=== PATIENT | female | born 1965 | race Caucasian/White ===

== ENCOUNTER 2017-01-19 03:31 | Inpatient (IN) ==
[2017-01-19 04:12] LABS: MANUAL DIFF NEEDED? NO
[2017-01-19 04:16] LABS: BASO% 0.2 % (0.0-0.8); HEMATOCRIT 39.5 % (37.0-47.0); HEMOGLOBIN 14.1 g/dL (12.0-16.0); IMM GRAN# 0.02 X1000 (0.0-0.04); IMM GRAN% 0.2 % (0.0-0.5); LYMPH# 1.19 X1000 (1.2-3.4); LYMPH% 9.1 % (20.5-51.1); MCHC 35.7 g/dL (33-37); MONO# 1.08 X1000 (0.11-0.59); MONO% 8.2 % (1.7-9.3); NEUT% 82.3 % (42.2-75.2); PLT 328 X1000 (130-400)
[2017-01-19 04:19] LABS: URINE CULTURE PL NEEDED? NO; URINE SOURCE CLEAN CATCH
[2017-01-19 04:21] LABS: BILIRUBIN URINE NEGATIVE (NEGATIVE); BLOOD URINE NEGATIVE (NEGATIVE); CLARITY CLEAR (CLEAR); COLOR YELLOW
[2017-01-19 04:22] LABS: PH URINE 6.5; PROTEIN URINE NEGATIVE (NEGATIVE); UROBILINOGEN URINE NORMAL
[2017-01-19] MEDS ORDERED: COLACE PO ONE (04:26)
--- NOTE | 2017-01-19 04:26 | PROVIDER DOCUMENTATION ---
HPI-General Adult - General Chief Complaint: Abdominal Pain Stated Complaint: ABD PAIN Time Seen by Provider: 01/19/17 03:44 Source: patient Unable to obtain history due to:: urgency Allergies/Adverse Reactions: Patient Allergies Allergy/AdvReac Type Severity Reaction Status Date / Time No Known Allergies Allergy Verified 09/04/13 00:03 Home Medications: Home Medication List Medication Instructions Recorded Confirmed Last Taken Type Alprazolam [Xanax] 1 tab PO BID 01/19/17 01/19/17 Unknown History Docusate Sodium [Colace] 200 mg PO QHS #30 capsule 01/19/17 Unknown Rx Lisinopril 1 tab PO DAILY 01/19/17 01/19/17 Unknown History - History of Present Illness -Gen Adult Nature of Presenting Problems: Patient thinks shes constipated. Denies any other complaints. Started 2 hours ago. Location of Pain/Injury: reports: abdomen Pain Radiation: reports: back Quality of Pain: reports: cramping Severity: reports: mild Onset/Duration: reports: 1-3 hours ago Timing: reports: still present Context/Activities at Onset: reports: none Modifying Factors: improves with: other medication Associated Symptoms: reports: denies symptoms Similar Symptoms Previously?: Yes Recently seen or treated by another doctor?: Yes - Diabetes Related Context Context: denies: low blood sugar - Sickle Cell Pain Related Context Sickle Cell Pain Location: reports: none Review of Systems - Adult - REVIEW OF SYSTEMS - ADULT Constitutional: reports: no symptoms reported Eyes: reports: no symptoms reported Ears, Nose, Mouth & Throat: reports: no symptoms reported Cardiovascular: reports: no symptoms reported Respiratory: reports: no symptoms reported Gastrointestinal: reports: constipation Genitourinary: reports: no symptoms reported Musculoskeletal: reports: no symptoms reported Integumentary: reports: no symptoms reported Neurological: reports: no symptoms reported Psychiatric: reports: no symptoms reported Endocrine: reports: no symptoms reported Hematologic/Lymphatic: reports: no symptoms reported Allergic/Immunologic: reports: no symptoms reported All Other Systems: Reviewed and Negative Past History - Adult - PAST MEDICAL HISTORY-ADULT Review of Records: reports: Old Records Reviewed, Nursing Assessment Review, Medications Reviewed, Social history reviewed & non-contributory. Physical Exam-General - PHYSICAL EXAM-ADULT Initial Vital Signs Reviewed: Yes - CONSTITUTIONAL General Appearance: appears well - EYES Eyes: PERRL/EOMI - HEAD, EARS, NOSE, MOUTH & THROAT HENMT: normocephalic/atraumatic - NECK Neck: non-tender - RESPIRATORY Respiratory: chest non-tender - CARDIOVASCULAR Cardiovascular: normal peripheral pulses - GASTROINTESTINAL (ABDOMEN) Abdominal Exam: normal bowel sounds - LYMPHATIC Lymphatic: no adenopathy - MUSCULOSKELETAL Back Exam: normal inspection Extremity: normal range of motion - SKIN Integumentary: normal color - NEUROLOGIC Neurologic: avionics technician II-XII nml as tested, grossly normal - PSYCHIATRIC Psych/Mental Status: normal mood/affect Progress - PLAN OF CARE/RESULTS Progress/Plan/Lab Results: Vital Signs - 8 hr 01/19/17 03:40 Temperature 97.9 F Pulse Rate 83 Respiratory Rate 20 Blood Pressure 123/83 O2 Sat by Pulse Oximetry 96 Laboratory Results - last 24 hr 01/19/17 01/19/17 01/19/17 03:50 03:50 04:00 WBC 13.13 H RBC 4.70 Hgb 14.1 Hct 39.5 MCV 84.0 MCH 30.0 MCHC 35.7 RDW Std Deviation 12.2 Plt Count 328 MPV 11.0 H Immature Gran % (Auto) 0.2 Neut % (Auto) 82.3 H Lymph % (Auto) 9.1 L [place] % (Auto) 8.2 Eos % (Auto) 0.0 Baso % (Auto) 0.2 Immature Gran # (Auto) 0.02 Neut # (Auto) 10.81 H Lymph # (Auto) 1.19 L [place] # (Auto) 1.08 H Eos # (Auto) 0.00 Baso # (Auto) 0.03 Urine Source Cancelled CLEAN CATCH Urine Color Cancelled Urine Turbidity Cancelled Urine pH Cancelled Ur Specific [place] Cancelled Urine Protein Cancelled Ur Glucose (Stick) Cancelled Ur Ketones (Stick) Cancelled Urine Blood Cancelled Urine Nitrite Cancelled Urine Bilirubin Cancelled Urobilinogen Dipstick Cancelled Urine Leukocytes Cancelled Urine WBC (Auto) Cancelled Urine RBC (Auto) Cancelled U Epithel Cells (Auto) Cancelled Urine Bacteria (Auto) Cancelled Orders Category Date Time Status Saline Loc DIRECTED Care 01/19/17 03:44 Active NPO Diet 01/19/17 03:44 Active KUB ABDOMEN [RAD] Stat Exams 01/19/17 03:45 Ordered AMYLASE [CHEM] Stat Lab 01/19/17 04:00 Received CBC WITH ELECTRONIC DIFF [HEME] Stat Lab 01/19/17 04:00 Completed COMPREHENSIVE METABOLIC PANEL [CHEM] Stat Lab 01/19/17 04:00 Received LIPASE [CHEM] Stat Lab 01/19/17 04:[address] W/POSS RFLX CULT [URINALYSIS] Stat Lab 01/19/17 03:50 Results Result Diagrams: 01/19/17 04:00 Departure - Departure Date of Disposition Decision: 01/19/17 Time of Disposition Decision: 04:25 DIAGNOSIS: Abdominal pain, Constipation Disposition: HOME 01 Certified Medical Emergency: Emergent Condition: Stable Prescriptions: Docusate Sodium [Colace] 200 mg PO QHS #30 capsule Referrals and Follow-Ups: None,PCP [Primary Care Provider] - - Critical Care Note This patient required my direct & personal management of CC.: No Attestation - Physician/ FRANCISCO Attestation The physician spent face to face time with patient:: Yes Advanced Practice Provider documentation review:: Supervising physician onsite and consulted in the evaluation and care of this patient. The physician did have a face to face encounter with the patient.
[2017-01-19] MEDS ORDERED: CITRATE OF MAGNESIA ONE (04:29)
[2017-01-19] MEDS ORDERED: CITRATE OF MAGNESIA PO ONE (04:31)
[2017-01-19 04:32] LABS: LEUKOCYTES URINE NEGATIVE (NEGATIVE); NITRITE URINE NEGATIVE (NEGATIVE)
[2017-01-19 04:46] LABS: ALBUMIN 4.7 g/dL (3.5-5.0); CALCIUM 9.8 mg/dL (8.8-10.2); POTASSIUM 3.9 mmol/L (3.5-5.1); TOTAL BILIRUBIN 0.3 mg/dL (0.20-1.00); TOTAL PROTEIN 8.7 g/dL (6.3-8.3)
[2017-01-19] MEDS ORDERED: NS 1,000 ML ONE (05:16)
[2017-01-19] MEDS ORDERED: HUMULIN R (PARKWAY) ONE (05:18)
[2017-01-19] MEDS ORDERED: NS 100 ML ONE ×2 (05:19→19:20)
[2017-01-19] MEDS ORDERED: NS 1,000 ML IV ONE (05:19)
[2017-01-19] MEDS ORDERED: DILAUDID IV ONE (05:26)
[2017-01-19] MEDS ORDERED: ZOFRAN IV ONE (05:26)
[2017-01-19] MEDS ORDERED: HUMULIN R (PARKWAY) 100 UNITS in NS 100 ML IV SCH (05:30)
[2017-01-19] MEDS ORDERED: DEMEROL IV ONE (05:55)
[2017-01-19] MEDS ORDERED: POTASSIUM CHLORIDE 40 MEQ/SWI 40 MEQ/100 ML IVPB IV PRN (07:38)
[2017-01-19] MEDS ORDERED: D50W SYRINGE IV PRN (07:38)
[2017-01-19] MEDS ORDERED: MAGNESIUM SULFATE 2 GM/S.W.I. 2 GM/50 ML IVPB IV PRN (07:38)
[2017-01-19 07:41] LABS: BE -11.1 mmoll (-3.0-3.0); BLOOD TYPE ARTERIAL; DRAW SITE R RADIAL; METHB 1.4 % (0.0-1.5); O2(CT) 20.6 mL/dL (15.0-23.0); PCO2(98.6) 24 mmHg (35-45); PO2(98.6) 114 mmHg (60-100); SAMPLE BLOOD; SAO2 98.6 % (95.0-100.0); THB 15.2 g/dL (11.5-17.4); pH(98.6) 7.33 (7.35-7.45)
[2017-01-19] MEDS ORDERED: ZOFRAN IV PRN (07:42)
[2017-01-19] MEDS ORDERED: SODIUM PHOSPHATE 30 MMOL in D5W 250 ML IV PRN (07:42)
[2017-01-19 07:46] LABS: ALLEN TEST YES; MODALITY ROOM AIR
[2017-01-19] MEDS: NS 1,000 ML IV SCH ×6 (08:07→20:39)
--- NOTE | 2017-01-19 09:13 | Diag Imaging Result Doc PS360 ---
EXAM: US ABDOMEN-COMPLETE INDICATION: pancreatitis COMPARISON: None. FINDINGS: There are prominent shadowing stones and layering echogenic sludge in the lumen of the gallbladder. There is no obvious gallbladder wall thickening. The common bile duct is normal in diameter. The sonographic Nicole's sign was reported to be positive by the household cook. The liver appears diffusely echogenic suggesting hepatic steatosis. No discrete hepatic mass is appreciated. Portal venous flow is hepatopedal. Much of the pancreas is obscured. The visualized portion is grossly unremarkable. No definite peripancreatic fluid collections can be identified by ultrasound. Portions of the aorta and IVC are obscured by gas. The visualized portions are unremarkable. The spleen is unremarkable. The kidneys are grossly unremarkable. IMPRESSION: 1.Prominent stones and echogenic sludge in the gallbladder lumen with a reported positive sonographic Nicole sign. No definite gallbladder wall thickening is appreciated by ultrasound. 2.Suggestion of hepatic steatosis. 3.The pancreas is largely obscured. No pericholecystic fluid collection can be identified sonographically. Electronically signed by Roderick Bonilla 01/19/2017 9:10 AM
[2017-01-19] MEDS: DILAUDID IV PRN ×5 (09:14→21:21)
[2017-01-19 09:57] LABS: AGAP 33; BUN 18 mg/dL (8-22); CALCIUM 9.2 mg/dL (8.8-10.2); CHLORIDE 87 mmol/L (98-107); COSMO 294; MAGNESIUM 2.3 mg/dL (1.5-2.7); POTASSIUM 3.6 mmol/L (3.5-5.1); SODIUM 130 mmol/L (136-145); TCO2 10 mmol/L (25-35)
[2017-01-19 10:48] LABS: HEMOGLOBIN A1C 6.1 % (4.8-6.0)
[2017-01-19] MEDS: PRINIVIL PO SCH (12:10)
[2017-01-19] MEDS: XANAX PO SCH ×2 (12:10→20:36)
--- NOTE | 2017-01-19 12:12 | Diag Imaging Result Doc PS360 ---
EXAM: KUB ABDOMEN INDICATION: constipation c flank pain x 4 days TECHNIQUE: 2 views COMPARISON: None. FINDINGS: There are unremarkable bowel gas and stool patterns. There is no obstructive bowel pattern. There is no evidence of large volume free abdominal gas. There is no evidence of organomegaly. IMPRESSION: No evidence of acute pathology by plain radiograph. Electronically signed by Roderick Bonilla 01/19/2017 12:10 PM
[2017-01-19 12:20] LABS: AGAP 28; BUN 16 mg/dL (8-22); CALCIUM 8.4 mg/dL (8.8-10.2); CHLORIDE 98 mmol/L (98-107); COSMO 299; MAGNESIUM 2.3 mg/dL (1.5-2.7); SODIUM 136 mmol/L (136-145); TCO2 10 mmol/L (25-35)
--- NOTE | 2017-01-19 12:22 | HISTORY AND PHYSICAL ---
PRIMARY CARE PHYSICIAN: None. CHIEF COMPLAINT: Abdominal pain that began 2 hours prior to arrival. HISTORY OF PRESENTING ILLNESS: This is a 51-year-old female who presents to [facility] ER with complaints of abdominal pain that began approximately 2 hours prior to arrival. States that she thought that she may be constipated. Workup in the ER showed a white blood cell count of 13.13, a sodium that was 119, chloride 78, glucose was 1060, amylase of 471, lipase 1959. Acetone level was moderate. States that she has no previous history of diabetes but does have diabetes in her family. So, she was admitted to the intensive care unit for DKA new onset, diabetes and acute pancreatitis. PAST MEDICAL HISTORY: None. PAST SURGICAL HISTORY: Bilateral tubal ligation. FAMILY HISTORY: Diabetes and heart disease. SOCIAL HISTORY: She currently lives with family. Was a former smoker but has been quit for 5 years. Denied any alcohol or illicit drug use. ALLERGIES: She has no known drug allergies. HOME MEDICATIONS: She takes Xanax 1 mg p.o. b.i.d. and lisinopril 20 mg p.o. daily. LABORATORY DATA: Showed a white blood cell count of 13.13, hemoglobin 14.1, hematocrit 39.5, platelets 328,000. ABG with a pH of 7.33, pCO2 24, PO2 114 with a bicarb of 16.2, and this was on room air. Sodium was 119, potassium 3.9, chloride 78, CO2 16, BUN of 18, creatinine 1, glucose was 1060. Magnesium of 2.3. Amylase of 471 with a lipase of 1959. Blood sugar this a.m. was 656. Urinalysis was negative except for 2+ ketones and 3+ glucose. Acetone level was moderate. Did an abdomen ultrasound this a.m. that showed prominent stones and echogenic sludge in the gallbladder lumen with a reported positive sonographic Nicole sign. No definite gallbladder wall thickening is appreciated by ultrasound. There is some suggestion of hepatic steatosis. The pancreas was largely obscured. No pericholecystic fluid collection could be identified sonographically. REVIEW OF SYSTEMS: She denied any fever, chills, blurred vision, dizziness, chest pain, coughing, shortness of breath. She is positive for generalized abdominal pain, constipation. Denied any diarrhea or burning or hurting with urination. PHYSICAL EXAMINATION: On arrival showed a temperature of 97.9 degrees, pulse 83, respirations 20, blood pressure 123/83, saturating 96% on room air. GENERAL: This is a 51-year-old female who is lying in the bed, and answers questions appropriately. HEENT: Normocephalic and atraumatic. Pupils are equal, round, reactive to light. Extraocular movements are intact. Oropharynx and nares are clear. NECK: Supple. LUNGS: Clear to auscultation bilaterally with equal lung expansion and chest wall movement. HEART: With regular rate and rhythm. No murmurs, rubs, or gallops. ABDOMEN: Soft, tender to palpation throughout entire abdomen. Bowel sounds are present x4 quadrants. EXTREMITIES: No clubbing, cyanosis, or edema. NEUROLOGICAL: The cranial nerves 2-12 are grossly intact. ASSESSMENT: 1. DKA new onset. 2. Acute pancreatitis. 3. Hyponatremia secondary to her DKA. 4. Cholelithiasis. PLAN: She was admitted to the intensive care unit and placed on insulin drip per our protocol. Normal saline at 150 mL an hour. She is on Dilaudid 1-2 mg IV q.3-4 hours p.r.n. We will check a hemoglobin A1c today. We will recheck a BMP, magnesium and phosphorus per the DKA protocol and we will discuss this case with Surgery after her acute pancreatitis is improved and her DKA has resolved. Dictated by LAURA Poe for Guillermo Delgadillo MD cc: LAURA Poe MD
[2017-01-19 16:16] LABS: CALCIUM 7.9 mg/dL (8.8-10.2); MAGNESIUM 2.4 mg/dL (1.5-2.7); POTASSIUM 4.3 mmol/L (3.5-5.1)
[2017-01-19] MEDS ORDERED: BLISTEX MEDICATED BERRY LIP BALM TOP PRN (17:59)
[2017-01-19] MEDS: POTASSIUM CHLORIDE 20 MEQ/SWI 20 MEQ/100 ML IVPB IV PRN (18:43)
[2017-01-19] MEDS: D5 1/2 NS 1,000 ML IV SCH (20:22)
[2017-01-19 20:32] LABS: CALCIUM 7.6 mg/dL (8.8-10.2); MAGNESIUM 2.4 mg/dL (1.5-2.7); POTASSIUM 4.2 mmol/L (3.5-5.1)
[2017-01-19] MEDS: HUMULIN R 100 UNIT in NS 99 ML IV SCH (22:04)
[2017-01-19 22:45] LABS: BE -12.4 mmoll (-3.0-3.0); BLOOD TYPE ARTERIAL; DRAW SITE R RADIAL; METHB 1.7 % (0.0-1.5); PCO2(98.6) 32 mmHg (35-45); PO2(98.6) 80 mmHg (60-100); SAMPLE BLOOD; SAO2 97.7 % (95.0-100.0); THB 15.1 g/dL (11.5-17.4); pH(98.6) 7.24 (7.35-7.45)
[2017-01-19 22:47] LABS: ALLEN TEST YES; MODALITY ROOM AIR
[2017-01-20 00:13] LABS: CALCIUM 7.2 mg/dL (8.8-10.2); MAGNESIUM 2.2 mg/dL (1.5-2.7); POTASSIUM 3.7 mmol/L (3.5-5.1)
[2017-01-20] MEDS: POTASSIUM CHLORIDE 20 MEQ/SWI 20 MEQ/100 ML IVPB IV PRN ×3 (00:17→22:35)
[2017-01-20] MEDS: DILAUDID IV PRN ×8 (00:21→22:45)
[2017-01-20 01:19] LABS: BE -11.8 mmoll (-3.0-3.0); BLOOD TYPE ARTERIAL; DRAW SITE R RADIAL; METHB 1.7 % (0.0-1.5); O2(CT) 21.3 mL/dL (15.0-23.0); PCO2(98.6) 31 mmHg (35-45); PO2(98.6) 80 mmHg (60-100); SAMPLE BLOOD; SAO2 97.1 % (95.0-100.0); THB 16.1 g/dL (11.5-17.4); pH(98.6) 7.26 (7.35-7.45)
[2017-01-20 01:21] LABS: ALLEN TEST YES; MODALITY ROOM AIR
[2017-01-20] MEDS: D5 1/2 NS 1,000 ML IV SCH ×2 (02:28→10:30)
[2017-01-20 04:35] LABS: MAGNESIUM 2.1 mg/dL (1.5-2.7); POTASSIUM 4.2 mmol/L (3.5-5.1)
[2017-01-20 04:38] LABS: CALCIUM 6.8 mg/dL (8.8-10.2)
[2017-01-20 05:30] LABS: BE -12.1 mmoll (-3.0-3.0); BLOOD TYPE ARTERIAL; DRAW SITE R RADIAL; METHB 1.7 % (0.0-1.5); PCO2(98.6) 30 mmHg (35-45); PO2(98.6) 72 mmHg (60-100); SAMPLE BLOOD; SAO2 97.1 % (95.0-100.0); pH(98.6) 7.26 (7.35-7.45)
[2017-01-20 05:32] LABS: ALLEN TEST YES; MODALITY ROOM AIR
[2017-01-20] MEDS ORDERED: NS 250 ML IV ONE (05:37)
[2017-01-20] MEDS ORDERED: CALCIUM GLUCONATE 1 GM in NS 50 ML IV ONE ×2 (05:38→22:43)
[2017-01-20] MEDS: NS 1,000 ML IV SCH ×3 (05:40→22:56)
[2017-01-20] MEDS ORDERED: SODIUM CHLORIDE 0.9% INJ SCH (05:45)
[2017-01-20] MEDS ORDERED: PROTONIX IV SCH (05:45)
[2017-01-20 08:38] LABS: POTASSIUM 4.1 mmol/L (3.5-5.1)
[2017-01-20 08:40] LABS: CALCIUM 6.8 mg/dL (8.8-10.2)
[2017-01-20] MEDS: XANAX PO SCH ×2 (09:09→20:59)
[2017-01-20] MEDS: PRINIVIL PO SCH (09:22)
[2017-01-20 11:10] LABS: MAGNESIUM 2.1 mg/dL (1.5-2.7); POTASSIUM 3.8 mmol/L (3.5-5.1)
[2017-01-20 11:11] LABS: CALCIUM 6.9 mg/dL (8.8-10.2)
[2017-01-20] MEDS ORDERED: FLEET ENEMA PR ONE (11:23)
[2017-01-20] MEDS ORDERED: RELISTOR SUBQ ONE (11:23)
[2017-01-20] MEDS ORDERED: CALCIUM GLUCONATE 2 GM in NS 100 ML IV ONE (11:24)
[2017-01-20] MEDS ORDERED: ATIVAN IV PRN (11:26)
[2017-01-20] MEDS ORDERED: ZOSYN 2.25 GM in NS 50 ML IV SCH (11:30)
[2017-01-20] MEDS: HUMULIN R 100 UNIT in NS 99 ML IV SCH (12:00)
[2017-01-20 14:21] LABS: BLOOD TYPE ARTERIAL; DRAW SITE L RADIAL; METHB 1.7 % (0.0-1.5); O2(CT) 18.8 mL/dL (15.0-23.0); PCO2(98.6) 29 mmHg (35-45); PO2(98.6) 65 mmHg (60-100); SAMPLE BLOOD; SAO2 96.3 % (95.0-100.0); THB 14.5 g/dL (11.5-17.4)
[2017-01-20 14:39] LABS: pH(98.6) 7.23 (7.35-7.45)
[2017-01-20 14:40] LABS: ALLEN TEST YES; MODALITY ROOM AIR
[2017-01-20 15:42] LABS: CALCIUM 7.2 mg/dL (8.8-10.2); MAGNESIUM 1.9 mg/dL (1.5-2.7); POTASSIUM 4.1 mmol/L (3.5-5.1)
--- NOTE | 2017-01-20 17:32 | Diag Imaging Result Doc PS360 ---
EXAM: KUB ABDOMEN INDICATION: distention TECHNIQUE: 2 views COMPARISON: 01/19/2017 FINDINGS: There has been interval development of mild gaseous distention of a few loops of small bowel as well as the transverse colon. There is no evidence of large volume free abdominal gas. The abdomen is grossly stable, otherwise. IMPRESSION: Interval development of mild nonspecific gaseous distention of bowel as described. This may represent a mild ileus. Follow-up is recommended. Electronically signed by Roedrick Bonilla 01/20/2017 5:29 PM
[2017-01-20] MEDS ORDERED: BLISTEX MEDICATED BERRY LIP BALM TOP PRN (17:33)
[2017-01-20] MEDS ORDERED: D50W SYRINGE IV PRN (17:34)
[2017-01-20] MEDS ORDERED: MAGNESIUM SULFATE 2 GM/S.W.I. 2 GM/50 ML IVPB IV PRN (17:35)
[2017-01-20] MEDS ORDERED: POTASSIUM CHLORIDE 40 MEQ/SWI 40 MEQ/100 ML IVPB IV PRN (17:35)
[2017-01-20] MEDS ORDERED: SODIUM PHOSPHATE 30 MMOL in D5W 250 ML IV PRN (17:36)
[2017-01-20] MEDS ORDERED: NS 1,000 ML IV ONE (17:47)
[2017-01-20] MEDS ORDERED: NS 1,000 ML ONE (17:56)
[2017-01-20] MEDS ORDERED: HUMULIN R 100 UNIT in NS 99 ML IV SCH (18:00)
[2017-01-20] MEDS ORDERED: D5 1/2 NS 1,000 ML IV SCH (18:00)
[2017-01-20] MEDS ORDERED: NS 1,000 ML IV SCH (18:00)
[2017-01-20 18:05] LABS: ALLEN TEST YES; BE -13.2 mmoll (-3.0-3.0); BLOOD TYPE ARTERIAL; DRAW SITE R RADIAL; METHB 1.3 % (0.0-1.5); O2(CT) 19.6 mL/dL (15.0-23.0); PCO2(98.6) 31 mmHg (35-45); PO2(98.6) 74 mmHg (60-100); SAMPLE BLOOD; SAO2 97.4 % (95.0-100.0); THB 14.8 g/dL (11.5-17.4); pH(98.6) 7.23 (7.35-7.45)
[2017-01-20 18:06] LABS: MODALITY CANNULA
[2017-01-20] MEDS: ZOSYN 2.25 GM in NS 50 ML IV SCH ×2 (18:30→23:06)
--- NOTE | 2017-01-20 19:07 | PROGRESS NOTE ---
DATE: 01/20/2017 Progress note/acceptant note This is a 51-year-old who presented with abdominal pain to [facility], which began a couple of hours before arrival, but she reports that she has had this pain now for 3 days. [place] [address]. Sodium was 119, chloride was 78, glucose was 1060, amylase 471, lipase 1959, acetone level was moderate. Had no previous history of diabetes and only significant history was bilateral tubal ligation. By her report, she does take Xanax for anxiety. I do not think she has seen her primary care recently. PAST SURGICAL HISTORY: Bilateral tubal ligation as mentioned above. FAMILY HISTORY: Diabetes and heart disease. SOCIAL HISTORY: Currently lives with the family. Former smoker, but quit for 5 years. Denies any alcohol or illicit drugs. ALLERGIES: No known drug allergies. MEDICATION: Only medication was Xanax 1 mg b.i.d. and lisinopril 20 mg a day. LAB DATA: Once again, white blood cell count 94438, hemoglobin was 14, hematocrit 39, platelet count 328,000. ABG shows pH is 7.33, pCO2 24, PO2 114, bicarb 16. She was on room air. Sodium was 119, potassium 3.9, chloride 78, CO2 16, BUN 18, creatinine 1.0, glucose was 1060, magnesium 2.3, amylase 471, lipase 1959. Blood sugar was 656. Urinalysis was negative except for 2+ ketones, 3+ glucose, acetone level was moderate. Abdominal ultrasound done showed prominent stones, echogenic sludge in the gallbladder lumen, reported positive Nicole sign. No definite gallbladder wall thickening. She reported she has had trouble with her gallbladder in the past. REVIEW OF SYSTEMS: General: No weight gain or loss. No fever or chills. HEENT: Unremarkable. Respiratory: No increased work of breathing or dyspnea. Cardiovascular: No chest pain or tachypalpitation. GI/: Unremarkable. Musculoskeletal: Unremarkable other than above. Musculoskeletal/neurologic: No significant complaints. PHYSICAL EXAM: Vital Signs: Temp 98.3 degrees, pulse 88, respirations 18, blood pressure 110/70. HEENT: Pupils are equal and round. Lungs are clear in all lung benz. Cardiovascular: Regular rhythm and rate without murmur or S3. Abdomen: Soft. Skin: Warm and dry. Urine output 1280. ASSESSMENT AND PLAN: 1. Pancreatitis. Suspect gallstone or related pancreatitis and may have some cholecystitis at this time as well. Continue to hold her NPO. Give her IV fluids. She looks as if she is dry, so we will change her to normal saline and give her liberal fluids. 2. She may have mild diabetic ketoacidosis, but I suspect it is more hyperosmolar, hyperglycemia, so will continue to give her IV insulin and to give her normal saline. 3. Cholelithiasis possible cholecystitis, aware. 4. New onset diabetes. cc: Colby Sharma MD
[2017-01-20] MEDS: PROTONIX IV SCH (19:15)
--- NOTE | 2017-01-20 19:19 | PROGRESS NOTE ---
DATE: 01/20/2017 SUBJECTIVE: The patient overall states she is feeling better. She is having less intense epigastric pain, but does note that her abdomen is swollen. She has been trying to have a bowel movement, but has not. She has been taking pain medications approximately every 3 hours, states it lasts about 2 to 2-1/2 hours, and then she starts getting anxious and starts hurting again. Denies any chest pain, palpitations. OBJECTIVE: Vital Signs: Reviewed. She is afebrile. Blood pressure is stable. Heart rate 90 to 110, respiratory rate 20-24. General: Patient is awake, alert. She is in no respiratory distress. Pleasant to talk with. She does not appear to be in as much pain as she was on yesterday's exam. HEENT: Normocephalic, atraumatic. FAUZIA. Neck: Supple. Cardiovascular: Regular rate and rhythm. Chest: Clear. Nonlabored. Abdomen: Soft, diffusely tender. Much more distended today than in yesterday's exam. Greatly decreased bowel sounds today from yesterday's exam. No apparent fluid wave. Extremities: Moves all extremities. No edema. ASSESSMENT: 1. Acute renal failure. Serum creatinine continues to climb. She was 0.9 on admit, currently 2.2. 2. Abdominal distention. Likely, she has a small bowel ileus secondary to her pancreatitis. We will continue to keep her NPO. We will attempt a Fleet's enema to see if this will help. 3. Pancreatitis. Amylase is slightly up. Lipase has trended down. Continue to keep NPO. Continue Zosyn. Further orders as needed. 4. Decreased urine output. Patient has had marked decrease in urinary output despite IV fluids. This certainly is worrisome with her acute pancreatitis. She is currently down to 15-20 mL an hour. We will check a KUB to see if she has any free air. Her altered renal ultrasound yesterday was negative. If her kidney continues to worsen, certainly may need to repeat this. PLAN: We will check KUB, try Fleet's enema. We will transfer her to [facility]. At this point, I expect that she is going to continue to worsen. We will consult Nephrology, Gastroenterology. She does have an abnormal gallbladder scan, but certainly does not need to have surgery at this point. We will continue to follow. cc: Guillermo Delgadillo MD
--- NOTE | 2017-01-20 19:31 | CONSULTATION ---
DATE OF CONSULTATION: 01/20/2017 REQUESTING PHYSICIAN: Hospitalist. REASON FOR CONSULTATION: Concerning possible biliary pancreatitis. HISTORY OF PRESENT ILLNESS: A 51-year-old female who presented to [facility] initially with complaints of abdominal pain approximately 2 hours prior to presentation. Workup in the emergency department showed a white blood cell count of 13. Sodium was noted at 110, chloride at 78, glucose over 1000. Amylase was 400, and lipase was almost 2000. Acetone levels were moderate. It was found that she was in DKA, and also had biliary pancreatitis. She has no previous history of diabetes or diabetes in her family. This was new-onset. She was transferred to [facility] for further evaluation, still reporting some abdominal pain. She has never had pain like this before. It was mostly concentrated in the epigastric area. I was asked to weigh an opinion on her acute pancreatitis. PAST MEDICAL HISTORY: None. PAST SURGICAL HISTORY: Bilateral tubal ligation. FAMILY HISTORY: Diabetes and heart disease. SOCIAL HISTORY: Currently lives with family. Former smoker. Denies alcohol or illicit drugs. ALLERGIES: No known allergies. HOME MEDICATIONS: Reviewed. She does take lisinopril. Current MAR reviewed. REVIEW OF SYSTEMS: A full 10-point review of systems obtained, negative, except as specified in HPI. PHYSICAL EXAMINATION: Vital Signs: Patient is currently afebrile. Her vital signs have been stable. General: In no acute distress. Appears uncomfortable. female. Looks stated age. HEENT: Normocephalic, atraumatic. Pupils equal, round, react to light. Mucous membranes moist. Oropharynx benign. Neck: Supple. Trachea midline. Cardiovascular: Regular rate and rhythm. Lungs: Grossly clear. Abdomen: Soft, distended, tender to palpation in the right upper quadrant and epigastric. No peritonitis, but she is tender in those regions. Extremities: Moves all extremities. Neurologic: Grossly intact. Skin: No signs of jaundice. Vascular: All extremities perfused. LABORATORY STUDIES: Reviewed. Of note, her amylase was 609, and her lipase was 1336. IMAGING STUDIES: Ultrasound reviewed. Patient does have prominent stones and sludge in her gallbladder, suggestion of moderate hepatic steatosis. ASSESSMENT AND PLAN: A 51-year-old female with new-onset diabetes, with diabetic ketoacidosis, with biliary pancreatitis. 1. New-onset diabetes with diabetic ketoacidosis. At this time, patient is being resuscitated on insulin drip. Her electrolytes seem to be improving. We need to have this all improved completely prior to any kind of surgical intervention. 2. Biliary pancreatitis. At this time, patient still has elevation in her lipase and had tenderness on exam that suggests she still has pancreatitis. At this time, I would like to have her pancreatitis cool off before surgical intervention, but she will likely need a cholecystectomy with cholangiogram. I discussed this with the patient. We will keep her in the ICU as long she needs to be resuscitated, and will continue to follow. Once she seems to clear from her DKA and her pancreatitis, will plan on surgical intervention. I appreciate the consult. cc: Venu Colbert MD
[2017-01-20] MEDS: ZOFRAN IV PRN (19:42)
--- NOTE | 2017-01-20 20:49 | CONSULTATION ---
DATE OF CONSULTATION: 01/20/2017 REFERRING PHYSICIAN: Guillermo Delgadillo MD REASON FOR CONSULTATION: Pancreatitis and gallstones. HISTORY OF PRESENT ILLNESS: Ms. Granados is a 51-year-old female who was admitted on 01/19/2017 to [facility] with symptoms of abdominal pain in the epigastric region , along with nausea and vomiting. At the time of admission, she was noted to have a high white count of 13,000, hyponatremia, sodium 119, glucose of 1060 and amylase of 471, lipase of 1959. Her acetone level was moderate. She was diagnosed with diabetic ketoacidosis, new onset diabetes , acute pancreatitis. She had imaging in the form of ultrasound done which showed evidence of gallstones. Her alkaline phos was also mildly elevated during this admission. She was transferred to the ICU in [facility] today. Her diabetic ketosis is getting better. She is on diabetic ketosis protocol. Her amylase and lipase were trending down with hydration. She still appears a little dry and she is on ice chips at the moment. She denied any vomiting or nausea today. She had one bowel movement today after enema. She does complain of abdominal pain and abdominal bloating which has stayed almost the same in the last 24 hours. She has had prior history of gallstones many years ago. PAST MEDICAL HISTORY: Gallstones. new onset diabetes mellitus. Admitted with diabetic ketoacidosis. PAST SURGICAL HISTORY: Bilateral tubal ligation. FAMILY HISTORY: Diabetes and heart disease. SOCIAL HISTORY: She lives with her family. She was a former smoker. She quit about 5 years ago. Denies alcohol, illicit drug abuse. ALLERGIES: No known drug allergies. MEDICATIONS: 1. Xanax 1 mg p.o. b.i.d. 2. Lisinopril 20 mg a day. MEDICATION IN THE HOSPITAL: 1. IV fluids at 150 hours with normal saline. 2. Xanax 1 mg p.o. b.i.d. 3. Dextrose 5% 0.45, normal saline at 125 ml/hour. 4. Blistex medicated lip balm. 5. Dilaudid 1-2 mg IV q. 3-4 hours as needed. 6. Humulin R drip. 7. Ativan 0.5 mg IV every 4 hours as needed. 8. Magnesium sulfate 2 g IV as needed. 9. Normal saline, I am giving her 1 bolus now as she appears dry. 10. Zofran 4 mg IV q.6 hours. 11. Protonix 40 mg IV q.12 hours. 12. Zosyn 2.25 g IV q.6 hours. 13. Sodium phosphate IV p.r.n. 14. She is currently nothing per oral. SYSTEM REVIEW: Denies any fevers, rigors, chills, chest pain, shortness of breath. Denies any genitourinary complaints. Denies any vomiting blood and passing blood in the stools. PHYSICAL EXAMINATION: Vital Signs: Temperature 98.3, pulse rate of 88, respiratory rate 18, blood pressure 110/70, saturating 99% 2 L nasal cannula. Body weight of 152 pounds, BMI 23.1 kg/m2. General: Moderately nourished, moderately built, lying in bed, in no acute. HEENT: No pallor. No icterus. Pupils equal, react to light. Neck: Supple. Chest: Decreased. Cardiac: Regular rate and rhythm. Abdomen: Distended, protuberant. Bowel sounds are hypoactive. No guarding. Discomfort in the periumbilical region and epigastric region. Liver and spleen cannot be felt. Extremities: No cyanosis, clubbing, edema. Neurologic: She is alert, awake, oriented x33. LABORATORY AND IMAGING: Her hemoglobin and hematocrit is 14.1 and 39.5 from yesterday. White count 13.1, platelet count of 328,000 from yesterday. Her ABG 7.23, pCO2 31, PO2 74, her lactate of 1.3, this is on 28% FiO2. Sodium 130, potassium 4.1, chloride 109, bicarb 23 , anion gap of 15, BUN of 20 creatinine of 2.4, glucose of 352, calcium 7.2, phosphorus 1.9. Magnesium 1.9, hb1c 6.1. Amylase of 471 which has gone up to 609, lipase is 1959, gone down to 1336. Urinalysis showing 2+ ketones, urine glucose is positive, acetone level is positive. She had ultrasound of the abdomen done yesterday which showed: 1) Prominent stones and echogenic sludge in the gallbladder lumen with reported positive sonographic Nicole's sign. No gallbladder wall thickening reported on ultrasound. 2) Suggestion of hepatic steatosis. 3) The pancreas is largely obscured. No pericholecystic fluid collection noted. IMPRESSION AND PLAN: 1. Acute pancreatitis, likely biliary pancreatitis. 2. Gallbladder sludge and gallstones. 3. New onset of diabetes with a blood glucose of more than 1000 on admission positive ketones and being treated for diabetic ketoacidosis. 4. Renal insufficiency, which is getting worse. RECOMMENDATIONS: 1. We will give 1000 mL bolus of fluids now and then start the NS at 250 mL/ hour and we will watch for signs of volume overload. 2. We will keep her on Protonix IV q.12 hours. She will continue IV pain control, IV antiemetics, IV fluids. 3. We will keep her NPO for now. Once she starts passing more gas and her appetite returns, we will reassess her for starting her on diet. We will call Dr. Venu Colbert for possible cholecystectomy during this admission. 4. We will check for triglyceride level, IgG 4 level and MRCP to evaluate for any other etiologies of her pancreatitis. 5. The above plan of care was discussed with the patient, RN, Dr. Colbert and Dr. Sharma. cc: MD Guillermo Saul MD Matthew L. Figh, MD MTDD
[2017-01-20 22:09] LABS: ALLEN TEST YES; BE -14.2 mmoll (-3.0-3.0); BLOOD TYPE ARTERIAL; DRAW SITE R RADIAL; METHB 1.3 % (0.0-1.5); PCO2(98.6) 26 mmHg (35-45); PO2(98.6) 72 mmHg (60-100); SAMPLE BLOOD; SAO2 97.4 % (95.0-100.0); THB 12.8 g/dL (11.5-17.4); pH(98.6) 7.25 (7.35-7.45)
[2017-01-20 22:10] LABS: MODALITY ROOM AIR
[2017-01-20 22:26] LABS: CALCIUM 6.7 mg/dL (8.8-10.2); POTASSIUM 4.6 mmol/L (3.5-5.1)
[2017-01-21] MEDS: D5 1/2 NS 1,000 ML IV SCH ×2 (00:24→04:51)
[2017-01-21] MEDS: DILAUDID IV PRN ×7 (02:01→22:27)
[2017-01-21] MEDS: ZOFRAN IV PRN (02:02)
[2017-01-21 04:43] LABS: MANUAL DIFF NEEDED? NO
[2017-01-21 04:48] LABS: BASO% 0.1 % (0.0-0.8); EOS# 0.01 X1000 (0.0-0.7); EOS% 0.1 % (0.0-10.0); HEMATOCRIT 34.4 % (37.0-47.0); HEMOGLOBIN 12.1 g/dL (12.0-16.0); IMM GRAN# 0.02 X1000 (0.0-0.04); IMM GRAN% 0.3 % (0.0-0.5); LYMPH# 0.98 X1000 (1.2-3.4); LYMPH% 12.6 % (20.5-51.1); MCHC 35.2 g/dL (33-37); MCV 85.1 FL (81-99); MONO# 0.51 X1000 (0.11-0.59); MONO% 6.6 % (1.7-9.3); NEUT% 80.3 % (42.2-75.2); PLT 262 X1000 (130-400); RBC 4.04 XMIL (4.2-5.4)
[2017-01-21 04:48] LABS: ALLEN TEST YES; BE -15.4 mmoll (-3.0-3.0); BLOOD TYPE ARTERIAL; DRAW SITE R RADIAL; METHB 1.4 % (0.0-1.5); MODALITY ROOM AIR; O2(CT) 16.6 mL/dL (15.0-23.0); PCO2(98.6) 25 mmHg (35-45); PO2(98.6) 79 mmHg (60-100); SAMPLE BLOOD; SAO2 97.9 % (95.0-100.0); THB 12.4 g/dL (11.5-17.4); pH(98.6) 7.23 (7.35-7.45)
[2017-01-21] MEDS: NS 1,000 ML IV SCH ×2 (04:52→05:47)
[2017-01-21 05:00] LABS: INR 0.99; PROTIME 10.4 Seconds (9.2-11.7)
[2017-01-21] MEDS: PROTONIX IV SCH ×2 (05:00→18:07)
[2017-01-21] MEDS: SODIUM CHLORIDE 0.9% INJ SCH ×2 (05:00→18:07)
[2017-01-21 05:11] LABS: MAGNESIUM 1.7 mg/dL (1.5-2.7)
[2017-01-21] MEDS: ZOSYN 2.25 GM in NS 50 ML IV SCH ×4 (05:11→23:06)
[2017-01-21 05:19] LABS: AGAP 17; ALBUMIN 2.6 g/dL (3.5-5.0); ALKALINE PHOSPHATASE 60 U/L (32-104); AMYLASE 355 U/L (20-200); BUN 31 mg/dL (8-22); CHLORIDE 105 mmol/L (98-107); COSMO 286; GOT 19 U/L (10-30); GPT 11 U/L (10-36); HDL 15 mg/dL (45-65); POTASSIUM 4.2 mmol/L (3.5-5.1); SODIUM 133 mmol/L (136-145); TCO2 11 mmol/L (25-35); TOTAL BILIRUBIN 0.31 mg/dL (0.20-1.00); TOTAL PROTEIN 5.6 g/dL (6.3-8.3); TRIGLYCERIDES 542 mg/dL (35-135)
[2017-01-21 05:27] LABS: LIPASE 590 U/L (13-60)
[2017-01-21] MEDS: POTASSIUM CHLORIDE 20 MEQ/SWI 20 MEQ/100 ML IVPB IV PRN ×4 (05:45→23:06)
[2017-01-21 06:20] LABS: CALCIUM 6.6 mg/dL (8.8-10.2)
--- NOTE | 2017-01-21 06:24 | PROGRESS NOTE ---
DATE: 01/19/2017 SUBJECTIVE: The patient notes she is having severe abdominal pain. Positive nausea. Denies any vomiting. She states it all started in the past few hours. Notes that over the past several days she has had increased thirst and increased urination. Denies any previous history of diabetes. PHYSICAL EXAMINATION: She is afebrile. Temperature 97 degrees, pulse 83, respiratory 20, BP 123/80, sat 96% on room air. General: Patient is awake, alert, currently in moderate distress secondary to pain. Abdomen is soft. Tender to palpation in the mid epigastric region. LABORATORY DATA: WBC 13. Sodium 119. Creatinine 1.0. Carbon dioxide 16. Glucose 1060, currently at 500. Lipase 1959. ASSESSMENT: 1. Acute pancreatitis. 2. Acute diabetes with hyperosmolar without coma. 3. Hyponatremia; corrects actually to 128. 4. Leukocytosis. PLAN: We will keep n.p.o. We will keep her blood sugars between 400s and 500s until around 2:00 p.m. At that point, we will begin slowly tightening down her blood sugar control. Certainly unsure how long her blood sugars have been this markedly elevated. The patient, however, is currently awake, alert, and oriented. We will use Dilaudid for pain. Keep n.p.o. Further orders as needed. cc: Guillermo Delgadillo MD
[2017-01-21] MEDS ORDERED: CALCIUM GLUCONATE 2 GM in NS 100 ML IV ONE ×2 (06:26→07:24)
--- NOTE | 2017-01-21 07:18 | PROGRESS NOTE ---
DATE: 01/21/2017 SUBJECTIVE: The patient doing okay. She is still reporting some abdominal pain. OBJECTIVE: Vital Signs: The patient is currently afebrile. Her vital signs have been stable. General: No acute distress. Resting comfortably in bed. HEENT: Normocephalic, atraumatic. Pupils equal, round, reactive to light. Mucous membranes moist. Oropharynx benign. Neck: Supple. Trachea midline. Cardiovascular: Regular rate and rhythm. Lungs: Grossly clear. Abdomen: Soft. Mildly distended. Tender to palpation in the epigastric. Extremities: Moves all extremities. Neurologic: Grossly intact. Skin: No signs of jaundice. Vascular: All extremities perfused. LABORATORY DATA: Reviewed. The patient is still acidotic on ABG with a base deficit of 15. Amylase and lipase are still elevated. Bilirubin is not elevated. Alkaline phosphatase is not elevated. AST and ALT are not elevated. ASSESSMENT AND PLAN: A 51-year-old female with diabetic ketoacidosis and biliary pancreatitis. 1. Diabetic ketoacidosis. At this time, kidney resuscitation is being managed by the hospitalist service. 2. Biliary pancreatitis. At this time, she still has elevated lipase and amylase. She is slubber tender that suggests that she still has some degree of pancreatitis. We will continue to hold off on surgery for right now. We will continue to monitor her closely. She is still acidotic and still needs some resuscitation. cc: Venu Colbert MD
[2017-01-21] MEDS ORDERED: NS 1,000 ML IV SCH (07:34)
[2017-01-21] MEDS ORDERED: SODIUM BICARBONATE IV SCH (07:59)
[2017-01-21] MEDS ORDERED: NS IV SCH (07:59)
[2017-01-21] MEDS ORDERED: NS 250 ML ONE (08:01)
[2017-01-21] MEDS: XANAX PO SCH ×2 (08:20→21:23)
[2017-01-21 08:29] LABS: MAGNESIUM 2.5 mg/dL (1.5-2.7)
[2017-01-21 08:38] LABS: POTASSIUM 4.2 mmol/L (3.5-5.1)
[2017-01-21 08:39] LABS: CALCIUM 6.9 mg/dL (8.8-10.2)
[2017-01-21 09:15] LABS: ALLEN TEST YES; BE -15.4 mmoll (-3.0-3.0); BLOOD TYPE ARTERIAL; DRAW SITE R RADIAL; METHB 1.3 % (0.0-1.5); O2(CT) 15.9 mL/dL (15.0-23.0); PCO2(98.6) 29 mmHg (35-45); PO2(98.6) 61 mmHg (60-100); SAMPLE BLOOD; SAO2 95.1 % (95.0-100.0); THB 12.3 g/dL (11.5-17.4)
[2017-01-21 09:17] LABS: MODALITY ROOM AIR
[2017-01-21] MEDS ORDERED: SODIUM PHOSPHATE 30 MMOL in NS 250 ML IV ONE (09:42)
[2017-01-21 10:24] LABS: UR CREAT RANDOM 63.1 mg/dL (11-20); UR PROT RANDOM 50.6 mg/dL
[2017-01-21] MEDS: SODIUM ACETATE IV SCH ×2 (10:31→21:23)
[2017-01-21] MEDS: NS IV SCH ×2 (10:31→21:23)
[2017-01-21] MEDS ORDERED: NEUTRA-PHOS PO ONE (11:20)
[2017-01-21 11:23] LABS: ALLEN TEST YES; BE -14.7 mmoll (-3.0-3.0); BLOOD TYPE ARTERIAL; DRAW SITE L RADIAL; METHB 1.3 % (0.0-1.5); MODALITY ROOM AIR; O2(CT) 16.4 mL/dL (15.0-23.0); PCO2(98.6) 26 mmHg (35-45); PO2(98.6) 68 mmHg (60-100); SAMPLE BLOOD; SAO2 97.2 % (95.0-100.0); THB 12.4 g/dL (11.5-17.4); pH(98.6) 7.24 (7.35-7.45)
--- NOTE | 2017-01-21 12:45 | Diag Imaging Result Doc PS360 ---
EXAM: MRI ABDOMEN W/WO CONTRAST HISTORY: Pancreatitis TECHNIQUE: Axial and coronal images obtained in multiple sequences. These are followed the post contrasted images. MIP images obtained/MRCP. COMPARISON: None. FINDINGS: There is a small amount of fluid about the liver and spleen and in each paracolic gutter. There are inflammatory changes about the pancreas and the pancreas is prominent. No distinct pancreatic pseudocyst or mass. The common bile duct measures 8 mm. No intrahepatic biliary ductal dilatation. The pancreatic duct is poorly seen although it is not dilated. There are several large stones within the gallbladder. No thickening to the gallbladder wall. Normal aorta and kidneys. The upper poles and adrenal glands are not fully included. Neither is the liver and spleen although they do not appear to be enlarged. The bowel loops are not dilated. IMPRESSION: Pancreatitis and cholelithiasis. A CT may be beneficial. Electronically signed by Tr Warren 01/21/2017 12:43 PM
[2017-01-21 12:57] LABS: MAGNESIUM 2.6 mg/dL (1.5-2.7)
--- NOTE | 2017-01-21 14:26 | Diag Imaging Result Doc PS360 ---
CHEST-PORTABLE - 01/21/2017 INDICATION: Central line placement TECHNIQUE: COMPARISON: None FINDINGS: There is a right subclavian central line in good position with the catheter tip at the lower SVC. Lung volumes are low. The lungs are clear of infiltrate. Heart size and pulmonary vascularity is normal. IMPRESSION: No acute disease or complication. Electronically signed by Joel David 01/21/2017 2:24 PM
[2017-01-21] MEDS ORDERED: DULCOLAX PR ONE (15:05)
--- NOTE | 2017-01-21 15:08 | PROGRESS NOTE ---
DATE: 01/21/2017 SUBJECTIVE: The patient resting in bed. She denies any fevers, rigors, or chills. Denies any nausea today. She passed some flatus this morning. She continues on diabetic ketosis, per protocol. She complains of abdominal distention, which is the same as before. OBJECTIVE: Vital signs: Vital signs are 97.9 degrees, pulse of 72, respiratory 26, blood pressure 114/74, saturating 95% room air. Body weight of 102 pounds. General appearance: This is a thin woman lying in bed, in no acute distress. HEENT: Mild pallor. No icterus. Neck: Supple. Abdomen: Protuberant. Mild distention noted. Bowel sounds present , but hypoactive. No rebound. No guarding. Discomfort in the periumbilical region, epigastric region. Extremities: No cyanosis or clubbing. Neurologic: Otherwise, alert, awake, oriented x3. LABORATORIES: Hemoglobin and hematocrit are 12.1 and 34.4, white count of 7.7, platelet count of 262,000. Sodium of 132, potassium 4.2, chloride 105, bicarb 11, anion gap 17, BUN of 31, creatinine 2.3, glucose of 336, calcium 6.6, phosphorus 1.8, magnesium 2.5, AST 19, ALT 11, alkaline phosphatase 62, total protein 5.6, Albumin 2.6, triglycerides 542, amylase of 355, lipase of 590. ABG showing pH of 7.24, pCO2 of 26, PO2 of 68, lactate of 0.6. This is on room air. Acetone level now is negative. ASSESSMENT AND PLAN: 1. Biliary Pancreatitis: We will continue on aggressive hydration. Her amylase level is trending down. I will start her on clear-liquid diet today. General Surgery is on board, and they are planning to take her gallbladder out, depending on her clinical status, most likely during this admission. 2. Gallstones and gallbladder sludge on imaging. Dr. Colbert is on board. 3. Diverticulosis, being monitored by the primary team. 4. Renal insufficiency, being monitored by the primary care team. 5. Gastrointestinal prophylaxis with proton pump inhibitors. 6. We will follow the results of the IgG 4 levels. We will also follow the results of the MRCP. 7. Her triglycerides are high, more than 500. This needs to be addressed by the primary care team. This could have also contributed to her pancreatitis, although she has very clear-cut biliary pancreatitis on admission. The above plan discussed with the patient and all questions answered. cc: Juan Love MD MTDD
[2017-01-21 15:22] LABS: CALCIUM 7.2 mg/dL (8.8-10.2); POTASSIUM 4.4 mmol/L (3.5-5.1)
[2017-01-21 15:29] LABS: MAGNESIUM 2.6 mg/dL (1.5-2.7)
--- NOTE | 2017-01-21 16:39 | CONSULTATION ---
DATE OF CONSULTATION: 01/21/2017 REASON FOR ADMISSION: Abdominal pain. CONSULTING PHYSICIAN: Dr. Delgadillo. REASON FOR CONSULT: Acute kidney injury, in the context of diabetic ketoacidosis. HISTORY OF PRESENT ILLNESS: Ms Granados is a 51-year-old white female, who is not been seen by our practice in the past, who presented to [facility] on January 19 with complaints of abdominal pain. The patient stated that she had already had complaints of nausea, with some emesis, for approximately 2 weeks prior to her admission. She stated that she had increased of thirst and polyuria with polydipsia for approximately 2 weeks, with continued abdominal cramping. She had decreased p.o. intake, in regards with foods, but tried to keep up on her fluids. The patient thought that she had complaints of constipation, after not going to the bathroom for several days. She woke up in the middle of the night, Saturday night into Saturday, with complaints of abdominal pain. She presented to [place]'s emergency department at that time. They had run some lab work. Initially, she had an abdominal x-ray that indicated no evidence of acute pathology, with unremarkable bowel gas and stool patterns. No evidence of organomegaly. She then had labs drawn. The patient was discharged home. Subsequently, in the a.m., she was called by [facility], indicating that she had elevated labs and, due to the fact that they were unable to reach her on her cell phone and her home phone, they had sent the police to her home. The patient, unfortunately, had been in the bathroom and was unable to answer her phone, and so the police communicated that she needed to get back to [place]'s emergency department. It was noted that her white cell count was 13.13, her sodium was down to 119, chloride of 78, glucose of 1060, amylase 471, lipase 1959, with a moderate acetone level. The patient states that she has no history of diabetes, nor did she have any history of kidney disease in the past, by her primary care physician. Due to her medical finding, she was transported to the hospital and remained at [facility] now, in the ICU, with new-onset DKA diabetes, acute pancreatitis and acute kidney injury. During this period of time, she has received IV fluids with IV insulin. Her glucoses are now in the 300-range. Her calcium was low. She has received calcium gluconate. She has received D5W during the night. She now has normal saline, but secondary to her CO2 of 11, with an anion gap of 17 and a lactate of 1, we will place her on a sodium bicarbonate drip of D5W with 3 units of sodium acetate to run at 100 mL an hour. The patient does deny chest pain. She states that she hurts all over. She has no increased work of breathing. She is currently on room air. She does state that she is slightly nauseated, but she has more polydipsia than anything. Denies emesis/ No fever or chills. No diarrhea. No recent falls. No changes of vision. PAST MEDICAL HISTORY: Has been reported as none. PAST SURGICAL HISTORY: She has had a bilateral tubal ligation. FAMILY HISTORY: Positive for diabetes and heart disease. No kidney disease. SOCIAL HISTORY: She is . She lives with her spouse. She has a grandson who is in her care. She is a former smoker who quit approximately 5 years ago. She denies any alcohol or illicit drug use. CURRENT ALLERGIES: Listed as no known drug allergies. HOME MEDICATIONS: Listed as Xanax. She does take lisinopril 20 mg daily for blood pressure. REVIEW OF SYSTEMS: Review of systems x10 with pertinent positives listed above in the HPI. VITAL SIGNS: Most recent vital signs, temperature 97.7 degrees, blood pressure 114/74, heart rate 76, respirations 22. She is on room air. Last recorded saturation 95%. She has had 6185 in. She has had 445 out per Smtih catheter. LABORATORIES/IMAGING: Sodium 133, potassium 4.2, chloride 103, CO2 was 11, BUN 32, creatinine 2.3, this has continued to improve. Glucose 324, anion gap of 19, calcium 6.6, phosphorus 2.1, albumin 2.6. Her corrected calcium is 7.72. She currently has calcium gluconate infusing. She has insulin infusing, normal saline at this time at 100 mL an hour. She had an abdominal ultrasound, indicating bilateral kidneys grossly unremarkable. White count 7.78 , hemoglobin 12.1, hematocrit 34.4, with a platelet count of 262,000. Her PT 10.4, INR 0.99. ABG : PH 7.23, CO2 of 25, pO2 of 79, bicarb 12.9 on room air. The patient has had a repeat abdominal x-ay on January 20. This indicates mild, nonspecific, gaseous distention of her bowel, representing possible mild ileus. There is no free abdominal air present. The patient's abdominal ultrasound, repeated on January 19, indicated prominent stones and sludge in the gallbladder, and reported in the lumen. Positive sonographic Nicole's sign. Definite gallbladder thickening. Suggestion of hepatic steatosis. The pancreas is enlarged. No pericholecystic fluid collection. PHYSICAL EXAMINATION: General: This is a 51-year-old white female. She appears chronically ill. She is in no acute distress. Skin: Warm and dry. HEENT: Normocephalic, atraumatic. Conjunctiva is pale. She has FAUZIA. Mucous membranes are dry. Neck: Supple. Trachea midline. No JVD. Cardiovascular: Regular rate and rhythm. No murmur or gallop appreciated. Lungs: Diminished breath sounds, posterior bases. Otherwise, remains on room air. Equal excursion. Abdomen: Distended positive bowel sounds x4. Nontender. Genitourinary: Smith catheter is in place. She has adequate urine out. Appears to be slightly cloudy urine. Extremities: No edema. No clubbing or cyanosis. Neurological: She is alert and oriented x3. ASSESSMENT AND PLAN: 1. Acute kidney injury. The patient's creatinine and BUN have continued to improve with fluid IV resuscitation. We will check urine electrolytes at this time. Ultrasound, again, is negative for any acute disease to kidneys. No further indications of intervention. 2. Electrolytes. These remain stable. 3. Acid-base balance. The patient appears to be in metabolic and anion gap acidosis. I have spoken to the primary care team. We will add D5W with 3 ampules of sodium acetate to infuse at 100 mL an hour. We will check laboratories on a daily basis. No further indications. She does continue with moderate acetones to her laboratories. We will continue to check an acetone level daily. 4. Hyponatremia. Again, this is secondary to her diabetic ketoacidosis. The patient's corrected sodium, per hyperglycemia, is 138. No further indications for intervention. 5. Diabetic ketoacidosis. She continues on insulin drip. This is being followed by the primary care team. Again, with recommendations of daily acetone levels. 6. Cholelithiasis. This is followed by the primary care team, with possible indications for referral to surgery consult. I would like to thank you for allowing us to follow with this patient. Dictated by LAURA Ruiz for Amadou Griffin MD Patient seen, data reviewed, discussed with Yojana Yang on 01/21/17. I agree with the above assessment and plan of care. cc: LAURA Ruiz MD [facility]
[2017-01-21 17:33] LABS: ALLEN TEST NO; BE -12.6 mmoll (-3.0-3.0); BLOOD TYPE ARTERIAL; DRAW SITE L BRACHIAL; METHB 1.4 % (0.0-1.5); PCO2(98.6) 27 mmHg (35-45); PO2(98.6) 61 mmHg (60-100); SAMPLE BLOOD; SAO2 96.4 % (95.0-100.0); THB 11.5 g/dL (11.5-17.4); pH(98.6) 7.28 (7.35-7.45)
[2017-01-21 17:34] LABS: MODALITY ROOM AIR
[2017-01-21 18:29] LABS: CALCIUM 7.3 mg/dL (8.8-10.2)
[2017-01-21 21:16] LABS: ALLEN TEST YES; BE -11.2 mmoll (-3.0-3.0); BLOOD TYPE ARTERIAL; DRAW SITE R RADIAL; METHB 1.4 % (0.0-1.5); O2(CT) 14.7 mL/dL (15.0-23.0); PCO2(98.6) 26 mmHg (35-45); PO2(98.6) 58 mmHg (60-100); SAMPLE BLOOD; SAO2 95.9 % (95.0-100.0); THB 11.3 g/dL (11.5-17.4); pH(98.6) 7.32 (7.35-7.45)
[2017-01-21 21:17] LABS: MODALITY ROOM AIR
[2017-01-21 22:07] LABS: MAGNESIUM 2.4 mg/dL (1.5-2.7)
[2017-01-21 22:10] LABS: CALCIUM 7.3 mg/dL (8.8-10.2); POTASSIUM 4.4 mmol/L (3.5-5.1)
[2017-01-21] MEDS: LOVENOX SUBQ SCH (22:11)
[2017-01-22 00:53] LABS: ALLEN TEST YES; BE -9.9 mmoll (-3.0-3.0); BLOOD TYPE ARTERIAL; DRAW SITE R BRACHIAL; METHB 1.4 % (0.0-1.5); O2(CT) 14.1 mL/dL (15.0-23.0); PCO2(98.6) 27 mmHg (35-45); PO2(98.6) 71 mmHg (60-100); SAMPLE BLOOD; SAO2 97.8 % (95.0-100.0); THB 10.6 g/dL (11.5-17.4); pH(98.6) 7.34 (7.35-7.45)
[2017-01-22 00:54] LABS: MODALITY ROOM AIR
[2017-01-22 01:27] LABS: CALCIUM 7.3 mg/dL (8.8-10.2); POTASSIUM 4.1 mmol/L (3.5-5.1)
[2017-01-22] MEDS: DILAUDID IV PRN ×8 (01:59→22:39)
[2017-01-22] MEDS: POTASSIUM CHLORIDE 20 MEQ/SWI 20 MEQ/100 ML IVPB IV PRN ×2 (02:21→06:32)
--- NOTE | 2017-01-22 03:55 | PROGRESS NOTE ---
DATE: 01/21/2017 SUBJECTIVE: The patient is resting comfortably in bed. She does complain of mild epigastric tenderness, she denies having any nausea or vomiting. OBJECTIVE: Vital Signs: Temperature 98 degrees, blood pressure 117/84, heart rate 87, respirations 21, O2 saturations 97% on room air. General: This is a elderly female lying in bed in no acute distress. Head: Normocephalic, atraumatic. Heart: S1, S2. Normal. Regular rate and rhythm. Lungs: Clear to auscultation bilaterally. Abdomen: Positive bowel sounds. Soft, nontender, nondistended. Positive for epigastric tenderness, no rebound tenderness. Extremities: No edema, cyanosis, no calf tenderness. Neuro: The patient is alert and oriented x3. LABS: White blood cell count 7.7, hemoglobin 12, hematocrit 34, platelets 262 ,000. ABG pH of 7.28, pCO2 27, PO2 61, bicarb 15, sodium 133, potassium 4.2, chloride 105, CO2 14, BUN 32, creatinine 2.4, glucose 205. Acetone negative. Chest x-ray shows no acute disease. Lipase 590. ASSESSMENT AND PLAN: 1. Diabetic ketoacidosis. The patient is currently on an insulin drip plus IV fluids. Will continue to monitor the Accu-Cheks every hour, will transition to subcutaneous insulin once the anion gap closes. 2. Acute kidney injury. The patient is currently on intravenous fluids. The business systems administrator has been consulted and is following. 3. Anion gap metabolic acidosis. Will continue to treat the DKA and hopefully the patient's acidosis should improve. Sodium acetate has been added to the patient's fluids for today. Will repeat an acetone level as well as an ABG and renal profile in the morning. 4. Cholelithiasis. The patient is being followed by Dr. Colbert. 5. Biliary pancreatitis. Slowly improving. Management as per the advisory internship. 6. Deep vein thrombosis prophylaxis. Will start the patient on Lovenox. 7. Gastrointestinal prophylaxis. Continue on IV Protonix. cc: Jaymie Vazquez MD MTDD
[2017-01-22 04:59] LABS: ALLEN TEST YES; BE -10.8 mmoll (-3.0-3.0); BLOOD TYPE ARTERIAL; DRAW SITE R RADIAL; METHB 1.6 % (0.0-1.5); O2(CT) 14.5 mL/dL (15.0-23.0); PCO2(98.6) 26 mmHg (35-45); PO2(98.6) 122 mmHg (60-100); SAMPLE BLOOD; THB 10.6 g/dL (11.5-17.4); pH(98.6) 7.33 (7.35-7.45)
[2017-01-22 05:00] LABS: MODALITY ROOM AIR
[2017-01-22] MEDS: ZOSYN 2.25 GM in NS 50 ML IV SCH ×4 (05:10→23:50)
[2017-01-22] MEDS: PROTONIX IV SCH ×2 (05:10→18:01)
[2017-01-22 05:11] LABS: EOS% 3.7 % (0.0-10.0); HEMATOCRIT 29.6 % (37.0-47.0); HEMOGLOBIN 10.1 g/dL (12.0-16.0); IMM GRAN# 0.02 X1000 (0.0-0.04); IMM GRAN% 0.2 % (0.0-0.5); LYMPH# 0.81 X1000 (1.2-3.4); LYMPH% 9.9 % (20.5-51.1); MANUAL DIFF NEEDED? YES; MCH 29.7 PG (27-31); MCHC 34.1 g/dL (33-37); MCV 87.1 FL (81-99); MONO# 0.39 X1000 (0.11-0.59); MONO% 4.8 % (1.7-9.3); MPV 11.4 FL (7.4-10.4); NEUT% 81.4 % (42.2-75.2); PLT 161 X1000 (130-400)
[2017-01-22] MEDS: SODIUM CHLORIDE 0.9% INJ SCH (05:11)
[2017-01-22 06:06] LABS: ALBUMIN 2.3 g/dL (3.5-5.0); ALKALINE PHOSPHATASE 52 U/L (32-104); DIRECT BILIRUBIN < 0.20 mg/dL (0.00-0.20); GOT 20 U/L (10-30); GPT 10 U/L (10-36); LIPASE 177 U/L (13-60); TOTAL BILIRUBIN 0.34 mg/dL (0.20-1.00); TOTAL PROTEIN 5.6 g/dL (6.3-8.3)
[2017-01-22 06:27] LABS: CALCIUM 6.9 mg/dL (8.8-10.2); POTASSIUM 4.2 mmol/L (3.5-5.1)
[2017-01-22 07:09] LABS: BANDS 18 % (0-1); LYMPHS 10 % (21-51)
--- NOTE | 2017-01-22 07:23 | Diag Imaging Result Doc PS360 ---
EXAM: CHEST-PORTABLE HISTORY: dyspnea TECHNIQUE: AP portable upright at 0055 COMMENT: There is a right subclavian line with its tip in the superior vena cava just above the right atrium. The inspiration is somewhat suboptimal. Compared to the previous examination of 01/21/2017 there has been no significant change. IMPRESSION: Stable chest. Electronically signed by Kamaljit Fraser 01/22/2017 7:21 AM
--- NOTE | 2017-01-22 07:24 | PROGRESS NOTE ---
DATE: 01/22/2017 SUBJECTIVE: The patient is doing better this morning. She says she is not hurting as much. I discussed her case with the nurse from overnight. No major issues reported. She seems to be doing relatively stable. She is still on an insulin drip and still getting her electrolytes replaced. OBJECTIVE: Vital Signs: Patient is currently afebrile. Her vital signs are stable. General: No acute distress. Alert, interactive, female, looks stated age. HEENT: Normocephalic, atraumatic. Pupils equal, round, react to light. Mucous membranes moist. Oropharynx benign. Neck: Supple. Trachea midline. Cardiovascular: Regular rate and rhythm. Lungs: Grossly clear. Abdomen: Soft, less distended. Less tender to palpation in the epigastric. No peritonitis. Extremities: Moves all extremities. Neurologic: Grossly intact. Skin: No signs of jaundice. Vascular: All extremities are perfused. LABORATORY: White blood cell count is 8, hematocrit 29, platelet count 161,000. ABG reviewed. Her base deficit is improving. CMP reviewed. Lipase is improving also. Her glucose is also improving. ASSESSMENT AND PLAN: A 51-year-old female with diabetic ketoacidosis and biliary pancreatitis. 1. Diabetic ketoacidosis. At this time, she is being resuscitated. Will need to follow up with the results on those studies. 2. Biliary pancreatitis. At this time, the patient did have an MRI, which showed pancreatitis and cholelithiasis. I think she is clinically improving but we will need to hold off on doing any kind of surgical intervention until overall her electrolyte abnormalities with her diabetic ketoacidosis and her pancreatitis is completely improved. I will continue to follow with you. cc: Venu Colbert MD
--- NOTE | 2017-01-22 07:25 | Diag Imaging Result Doc PS360 ---
EXAM: ABDOMEN FLAT/UPRIGHT HISTORY: ileus TECHNIQUE: AP portable flat and upright abdomen COMMENT: There is gas throughout the colon and small bowel. There is some gas in the stomach which is not distended. There is no evidence organomegaly or mass. This has worsened somewhat since 01/20/2017. IMPRESSION: Ileus. Electronically signed by Kamaljit Fraser 01/22/2017 7:22 AM
[2017-01-22] MEDS ORDERED: CALCIUM GLUCONATE 1 GM in NS 50 ML IV ONE (07:30)
[2017-01-22 08:18] LABS: ALLEN TEST YES; BLOOD TYPE ARTERIAL; DRAW SITE R BRACHIAL; METHB 1.1 % (0.0-1.5); O2(CT) 13.2 mL/dL (15.0-23.0); PCO2(98.6) 26 mmHg (35-45); SAMPLE BLOOD; SAO2 92.3 % (95.0-100.0); THB 10.5 g/dL (11.5-17.4); pH(98.6) 7.39 (7.35-7.45)
[2017-01-22 08:19] LABS: MODALITY ROOM AIR
[2017-01-22 08:20] LABS: PO2(98.6) 49 mmHg (60-100)
[2017-01-22] MEDS: XANAX PO SCH ×2 (08:49→21:01)
[2017-01-22] MEDS: NS IV SCH ×2 (08:49→19:35)
[2017-01-22] MEDS: SODIUM ACETATE IV SCH ×2 (08:49→19:35)
[2017-01-22] MEDS ORDERED: VITAMIN D PO SCH (09:00)
[2017-01-22 09:11] LABS: CALCIUM 7.1 mg/dL (8.8-10.2); POTASSIUM 4.2 mmol/L (3.5-5.1)
--- NOTE | 2017-01-22 09:20 | PROGRESS NOTE ---
DATE: 01/22/2017 SUBJECTIVE: Ms. Granados is resting quietly in bed. She states that she is feeling well. She states that she will be n.p.o. as of midnight tonight for possible abdominal surgery and removal of gallbladder per Dr. Colbert. Otherwise, she is in no acute distress. LABORATORY DATA: Sodium 141, potassium 4.2, chloride 112, CO2 of 13, BUN 30, creatinine 2.2, glucose 171, anion gap 16, calcium 6.9. Magnesium 2.3. Albumin 2.3. White count 8.21, hemoglobin 10.1, hematocrit 29.6, platelet count 161,000. Her acetone remains moderate today. Her lipase is 177. Vitamin hydroxy-D level is 5. ABGs: PH 7.33, CO2 of 26, PO2 of 122, bicarb 16.5 on room air. The patient's lactate today is 0.70. PHYSICAL EXAMINATION: Vital Signs: Last temp 98.3 degrees, blood pressure 127/ 82, heart rate 87, respirations 26. She is on room air. Last recorded saturation 96%. She has had 5046 in. She has had 1975 out per Smith catheter. General: This is a 51-year-old white female. She is resting in bed. She is in no acute distress. Skin: Warm and dry. HEENT: Normocephalic , atraumatic. Conjunctivae pink. She has FAUZIA. Mucous membranes are moist. Neck: Supple. Trachea midline. No JVD. Cardiovascular: Regular rate and rhythm. She has a positive S4. Lungs: Clear to auscultation bilaterally. Equal excursion. Abdomen: Soft, slightly distended. No tenderness noted on palpation, with positive bowel sounds. Extremities: Trace edema. No clubbing or cyanosis. Genitourinary: Smith catheter is in place, not inspected. Neurological: She is alert and oriented x3. ASSESSMENT AND PLAN: 1. Acute kidney injury. This continues to slowly improve with intravenous fluid resuscitation. Adequate urine out. No indications for intervention today. 2. Electrolytes. These are stable. 3. Acid-base balance. The patient continues on D5W with 3 amps of sodium acetate, continues at 100 mL an hour. Her anion gap is closing. Her CO2 is improving. Lactate is negative. 4. Anemia. This remains low, but stable. 5. Abdominal pain. The patient has indicated that she is to have her gallbladder out in [address] Colbert. 6. Diabetic ketoacidosis. The patient continues with moderate acetones per her blood level this morning. Lactate is negative. She continues on intravenous insulin as directed per protocol, with primary care following. I would like to thank you for allowing us to follow with this patient. Dictated by LAURA Ruiz for Amadou Griffin MD Patient seen, data reviewed, discussed with Yojana Yang on 01/22/17. I agree with the above assessment and plan of care. cc: LAURA Ruiz MD [facility]
[2017-01-22 11:43] LABS: ALLEN TEST YES; BE -6.7 mmoll (-3.0-3.0); BLOOD TYPE ARTERIAL; DRAW SITE L RADIAL; O2(CT) 14.3 mL/dL (15.0-23.0); PCO2(98.6) 34 mmHg (35-45); PO2(98.6) 60 mmHg (60-100); SAMPLE BLOOD; SAO2 95.3 % (95.0-100.0); pH(98.6) 7.34 (7.35-7.45)
[2017-01-22 11:46] LABS: MODALITY CANNULA
[2017-01-22] MEDS ORDERED: NEUTRA-PHOS PO ONE (13:03)
--- NOTE | 2017-01-22 13:55 | PROGRESS NOTE ---
DATE: 01/22/2017 SUBJECTIVE: The patient is resting comfortably in bed. She states that she is feeling a lot better. No acute events noted overnight. OBJECTIVE: Vital Signs: Temperature 97.9 degrees, blood pressure 101/47, heart rate 72, respirations 17, O2 saturation is 98% on 2 L nasal cannula. General: This is an overweight female, lying in bed in no acute distress. Head: Normocephalic, atraumatic. Heart: S1, S2. Normal. Regular rate and rhythm. Lungs: Equal air entry bilaterally. No crackles, no rales. Abdomen: Positive bowel sounds. Soft. Mild epigastric tenderness. Extremities: No edema. No cyanosis. No calf tenderness. Neuro: The patient is alert and oriented x3. LABS: White blood cell count 8.2, hemoglobin 10, hematocrit 29, platelets 161. ABG shows pH of 7.3, pCO2 34, PO2 60, bicarbonate 19. Sodium 143, potassium 4.2, chloride 112, CO2 15, BUN 30, creatinine 2, glucose 158. Phosphorus 2.3, magnesium 2.4. Calcium 7.1. ProBNP 537, total protein 5.6, albumin 2.3, lipase 177, vitamin D 5. ASSESSMENT AND PLAN: 1. Diabetic ketoacidosis. The anion gap is slowly closing. The patient still has moderate acetone. Will continue on the insulin drip as ordered. We will transition to subcutaneous insulin once the anion gap closes. 2. Biliary pancreatitis. The lipase has been improving daily. The patient will likely require gallbladder removal as per Dr. Colbert once the patient's diabetic ketoacidosis has resolved. 3. Acute kidney injury. Slowly improving with intravenous fluids. Will continue to monitor closely. 4. Hypoxemia. The arterial blood gas revealed a PO2 of 49 this morning. So, the patient was placed on 2 L nasal cannula. A repeat arterial blood gas on 2 L nasal cannula revealed a PO2 of 60. Will continue to monitor the patient closely. 5. Anion gap metabolic acidosis, slowly improving. Continue on the current treatment regimen. 6. Vitamin D deficiency. Will start the patient on vitamin D replacement. 7. Hypophosphatemia. Replace phosphorus 8. Deep vein thrombosis prophylaxis. Continue on Lovenox. cc: Jaymie Vazquez MD [facility] CENTERVeronica
[2017-01-22 15:34] LABS: CALCIUM 7.2 mg/dL (8.8-10.2); POTASSIUM 3.6 mmol/L (3.5-5.1)
[2017-01-22 17:14] LABS: CALCIUM 7.2 mg/dL (8.8-10.2); POTASSIUM 3.4 mmol/L (3.5-5.1)
[2017-01-22 17:43] LABS: ALLEN TEST YES; BE -4.5 mmoll (-3.0-3.0); BLOOD TYPE ARTERIAL; DRAW SITE R RADIAL; METHB 1.3 % (0.0-1.5); PCO2(98.6) 32 mmHg (35-45); PO2(98.6) 61 mmHg (60-100); SAMPLE BLOOD; SAO2 95.2 % (95.0-100.0); THB 14.7 g/dL (11.5-17.4); pH(98.6) 7.39 (7.35-7.45)
[2017-01-22 17:45] LABS: MODALITY CANNULA
[2017-01-22] MEDS: LOVENOX SUBQ SCH (21:01)
[2017-01-22] MEDS: ATIVAN IV PRN (22:22)
[2017-01-22 22:35] LABS: MAGNESIUM 2.1 mg/dL (1.5-2.7)
[2017-01-22 23:15] LABS: CALCIUM 7.5 mg/dL (8.8-10.2); POTASSIUM 3.7 mmol/L (3.5-5.1)
[2017-01-23] MEDS: DILAUDID IV PRN ×6 (01:39→21:12)
[2017-01-23 04:18] LABS: ALLEN TEST YES; BE -2.7 mmoll (-3.0-3.0); BLOOD TYPE ARTERIAL; DRAW SITE R RADIAL; PCO2(98.6) 30 mmHg (35-45); PO2(98.6) 50 mmHg (60-100); SAMPLE BLOOD; THB < 3.0 g/dL (11.5-17.4); pH(98.6) 7.44 (7.35-7.45)
[2017-01-23 04:20] LABS: MODALITY CANNULA
[2017-01-23 04:59] LABS: MANUAL DIFF NEEDED? NO
[2017-01-23] MEDS: PROTONIX IV SCH ×2 (05:05→17:46)
[2017-01-23] MEDS: ZOSYN 2.25 GM in NS 50 ML IV SCH ×3 (05:05→17:48)
[2017-01-23] MEDS: SODIUM CHLORIDE 0.9% INJ SCH ×2 (05:05→17:47)
[2017-01-23 05:42] LABS: BASO% 0.1 % (0.0-0.8); HEMATOCRIT 27.8 % (37.0-47.0); HEMOGLOBIN 9.4 g/dL (12.0-16.0); IMM GRAN# 0.06 X1000 (0.0-0.04); IMM GRAN% 0.7 % (0.0-0.5); LYMPH% 8.8 % (20.5-51.1); MCH 29.8 PG (27-31); MCHC 33.8 g/dL (33-37); MCV 88.3 FL (81-99); MONO# 0.69 X1000 (0.11-0.59); MONO% 7.6 % (1.7-9.3); MPV 10.5 FL (7.4-10.4); NEUT% 82.8 % (42.2-75.2); PLT 196 X1000 (130-400); RBC 3.15 XMIL (4.2-5.4)
[2017-01-23 06:00] LABS: CALCIUM 7.5 mg/dL (8.8-10.2)
[2017-01-23] MEDS ORDERED: HUMULIN R SUBQ SCH (07:00)
[2017-01-23] MEDS: XANAX PO SCH ×2 (08:18→20:24)
[2017-01-23] MEDS: SODIUM ACETATE IV SCH (08:18)
[2017-01-23] MEDS: NS IV SCH (08:18)
--- NOTE | 2017-01-23 08:25 | PROGRESS NOTE ---
DATE: 01/23/2017 SUBJECTIVE: No major issues. The patient does report she is feeling better, although the nurses have stated that she did have pain overnight. She seems to be doing okay. She does want to have liquids. OBJECTIVE: Vital signs: The patient is currently afebrile. Her vital signs are stable. General: In no acute distress, alert, interactive female who looks stated age. HEENT: Normocephalic, atraumatic. Pupils are equal, round, and reactive to light. Mucous membranes moist, oropharynx benign. Neck: Supple. Trachea midline. Cardiovascular: Regular rate and rhythm. Lungs: Grossly clear. Abdomen: Soft, less distended, less tender. No peritoneal signs. Extremities: Moves all extremities. Neurologic: Grossly intact. Skin: No signs of jaundice. Vascular: All extremities perfused. LABORATORY: White blood cell count 9, hematocrit 27, platelet count 196. ABG reviewed. She had essentially normal pH. Her base deficit is improving. Remainder of labs reviewed. Lipase is improving to 77. ASSESSMENT AND PLAN: A 51-year-old female with diabetic ketoacidosis, biliary pancreatitis. 1. Diabetic ketoacidosis. At this time, she is being resuscitated. It seems like her base deficit is improving. I have tentatively scheduled for surgery in the morning. If hospitalists are okay, we can proceed; if not, we will delay her surgery. 2. Biliary pancreatitis. At this time, again, I have scheduled the patient for a laparoscopic cholecystectomy. Again, I will hold off if primary team thinks she is not currently stable enough for surgery. I discussed with patient the procedure. cc: Venu Colbetr MD
[2017-01-23] MEDS: ZOFRAN IV PRN ×2 (08:27→17:03)
[2017-01-23] MEDS ORDERED: LANTUS SUBQ ONE (10:38)
[2017-01-23] MEDS: HUMULIN R SUBQ SCH ×3 (11:31→20:23)
[2017-01-23] MEDS: 1/2 NS 1,000 ML IV SCH (11:32)
[2017-01-23] MEDS ORDERED: INSULIN PEN NEEDLES ONE ×2 (11:56→20:17)
[2017-01-23] MEDS ORDERED: MORPHINE IV PRN (15:52)
[2017-01-23] MEDS ORDERED: DULCOLAX PR PRN (17:00)
--- NOTE | 2017-01-23 17:33 | PROGRESS NOTE ---
DATE: 01/23/2017 SUBJECTIVE: The patient is currently resting in bed. She complains of back pain. She is getting Dilaudid 2 mg IV q. 3 hours. She is planning for colonoscopy tomorrow. Her lipase is near normal. She is on diabetes protocol per the ICU team and primary team. OBJECTIVE: Vital signs are temperature 98, pulse rate of 88, respiratory rate, blood pressure 141/87, saturating 87% room air. General: Moderately built and nourished lying in bed, in no acute distress. HEENT: Mild pallor. No icterus. Neck: Supple. Abdomen: Soft, nontender, mildly protuberant. Bowel sounds are present. No guarding. Extremities: No cyanosis , clubbing, or edema. Neurologic: She is alert, awake, oriented. LABS: Hemoglobin and hematocrit is 9.4 and 27, white count 9.07, platelet count of 196,000, MCV of 88.3. Sodium 146, potassium 4, chloride 107, bicarb of 18, anion gap 21, BUN of 25, creatinine 1.6, glucose of 164, calcium is 7.5, phosphorus 2.7, magnesium 2.0, lipase 77. Acetone level is moderate positive. IgG 4 level is normal at 82.5. Abdominal MRI done on 2016 showed pancreatitis and cholelithiasis. Her triglyceride level was 542 which is high. IMPRESSION AND PLAN: 1. Biliary pancreatitis. scheduled for cholecystectomy tomorrow. 2. Diabetic ketoacidosis. On diabetic ketoacidosis protocol per the primary care team. 3. Acute kidney injury, which is improving. 4. Hypoxemia. Patient will be encouraged to use incentive spirometer at bedside. 5. Back pain. Since the patient is on Narcotics for pain control, we will keep her on bowel regimen with Dulcolax. 6. GI prophylaxis with PPIs. The above plan discussed with the patient and the nurse and all questions answered. cc: MD Venu Saul MD Katherine Takundwa, MD MTDD
--- NOTE | 2017-01-23 17:40 | PROGRESS NOTE ---
DATE: 01/23/2017 SUBJECTIVE: The patient is resting comfortably in bed. She states that her abdominal pain has improved. The patient is off of the insulin drip. OBJECTIVE: Vital Signs: Temperature 98 degrees, blood pressure 141/87, heart rate 88, respirations 19, O2 saturations 96% on 2 L nasal cannula. General: This is an elderly female, lying comfortably in bed, in no acute distress. Head: Normocephalic, atraumatic. Heart: S1, S2. Normal. Regular rate and rhythm. Lungs: Clear to auscultation bilaterally. No wheezing. No rales. No rhonchi. Abdomen: Positive bowel sounds. Soft, nontender, nondistended. Extremities: No edema. No cyanosis. LABORATORY: White blood cell count 9, hemoglobin 9.4, hematocrit 27, platelets 196,000. Sodium 146, potassium 4, chloride 107, CO2 28, BUN 25, creatinine 1.6, glucose 220. ASSESSMENT AND PLAN: 1. Diabetic ketoacidosis, resolved. The patient will be started on Lantus b.i.d. plus sliding scale insulin coverage. 2. Acute kidney injury. Slowly improving. We will continue to monitor the patient's urine output closely and avoid nephrotoxic agents. 3. Biliary pancreatitis. The patient is scheduled to undergo a cholecystectomy tomorrow. 4. Vitamin D deficiency. Continue on vitamin D replacement. 5. Hypoxemia. Continue with supplemental oxygen. 6. Hypertension, controlled. 7. Ileus. Continue on laxatives as per GI. 8. Deep vein thrombosis prophylaxis. The patient is on Lovenox. 9. The patient is stable for transfer to the medical floor. cc: Jaymie Vazquez MD [facility]
--- NOTE | 2017-01-23 19:32 | PROGRESS NOTE ---
DATE: 01/23/2017 SUBJECTIVE: She is feeling better every day. She expects cholecystectomy tomorrow. No nausea. No shortness of breath. OBJECTIVE: Vital Signs: Blood pressure 137/83, heart rate 82, respirations 12, afebrile. Intake 3.5 L. Output 3.2 L. General: No acute distress. Skin: Warm and dry. HEENT: Conjunctivae are pink. Pupils are equal. Neck: Neck veins are not distended. Trachea is midline. Heart: Regular without gallops or murmurs. Lungs: Have equal breath sounds. No crackles or wheezes. Abdomen: Soft and minimally tender. Bowel sounds are present. Extremities: Have no edema, clubbing, or cyanosis. LABORATORY DATA: Sodium 146, potassium 4.0, chloride 107, bicarbonate 18, BUN 25, creatinine 1.6. Hemoglobin 9.4. IMPRESSIONS: 1. Acute kidney injury. She has experienced progressive improvement in her renal dysfunction but she has not returned to normal. IV fluids are appropriate. 2. Electrolytes and acid-base are in target. No changes. cc: Amadou Griffin MD
[2017-01-23] MEDS: LANTUS SUBQ SCH (20:24)
[2017-01-23] MEDS: LOVENOX SUBQ SCH (20:25)
[2017-01-24] MEDS: 1/2 NS 1,000 ML IV SCH ×2 (00:10→13:35)
[2017-01-24] MEDS: DILAUDID IV PRN ×7 (00:11→22:50)
[2017-01-24] MEDS: ZOSYN 2.25 GM in NS 50 ML IV SCH ×4 (00:11→22:49)
[2017-01-24] MEDS: PROTONIX IV SCH ×2 (06:12→18:48)
[2017-01-24] MEDS: SODIUM CHLORIDE 0.9% INJ SCH (06:12)
[2017-01-24] MEDS: HUMULIN R SUBQ SCH ×4 (06:35→22:47)
[2017-01-24 07:05] LABS: BASO% 0.3 % (0.0-0.8); HEMATOCRIT 26.1 % (37.0-47.0); HEMOGLOBIN 8.8 g/dL (12.0-16.0); IMM GRAN# 0.15 X1000 (0.0-0.04); LYMPH# 0.96 X1000 (1.2-3.4); LYMPH% 12.9 % (20.5-51.1); MANUAL DIFF NEEDED? YES; MCH 29.5 PG (27-31); MCHC 33.7 g/dL (33-37); MCV 87.6 FL (81-99); MONO# 1.03 X1000 (0.11-0.59); MONO% 13.8 % (1.7-9.3); PLT 196 X1000 (130-400); RBC 2.98 XMIL (4.2-5.4)
--- NOTE | 2017-01-24 07:10 | PROGRESS NOTE ---
DATE: 01/24/2017 SUBJECTIVE: Patient is doing okay. She was transferred to the floor yesterday. OBJECTIVE: Vital Signs: Patient is currently afebrile. Her vital signs are stable. General: No acute distress. Resting comfortably in bed. HEENT: Normocephalic, atraumatic. Pupils equal, round, reactive to light. Mucous membranes moist. Oropharynx benign. Neck supple. Trachea midline. Cardiovascular: Regular rate and rhythm. Lungs grossly clear. Abdomen soft; less tender than previous days. Overall improving. Extremities: Moves all extremities. Neurologic: Grossly intact. Skin: No signs of jaundice. Vascular: All extremities perfused. Laboratory for this morning pending. ASSESSMENT AND PLAN: A 52-year-old female with diabetic ketoacidosis now with biliary pancreatitis. 1. Diabetic ketoacidosis. It seems to be improving. We have gotten the approval from the hospitalist to proceed with surgery. We will plan on it later today. 2. Biliary pancreatitis. At this time, we will plan on surgical intervention including cholecystectomy with cholangiogram. This was discussed with the patient. The risks, benefits, alternatives, including but not limited to bleeding, infection, risk of anesthesia, risk of common bile duct injury and bile leak. All questions answered. cc: Venu Colbert MD
[2017-01-24 07:34] LABS: ALBUMIN 2.6 g/dL (3.5-5.0); CALCIUM 7.9 mg/dL (8.8-10.2); POTASSIUM 2.7 mmol/L (3.5-5.1)
[2017-01-24 08:03] LABS: BANDS 8 % (0-1); LYMPHS 34 % (21-51); MONO 2 % (1-9)
[2017-01-24] MEDS ORDERED: DIPRIVAN 1% ONE ×2 (08:52→13:59)
[2017-01-24] MEDS ORDERED: XYLOCAINE-MPF 2% ONE ×2 (08:53→13:56)
[2017-01-24] MEDS ORDERED: ZOFRAN ONE ×2 (08:54→14:31)
[2017-01-24] MEDS ORDERED: DECADRON ONE ×2 (08:54→14:31)
[2017-01-24] MEDS ORDERED: QUELICIN (DOSE) ONE ×2 (08:56→13:59)
[2017-01-24] MEDS ORDERED: ZEMURON ONE ×2 (08:57→13:59)
[2017-01-24] MEDS ORDERED: POTASSIUM PHOSPHATE 40 MMOL in NS 250 ML IV ONE (09:26)
--- NOTE | 2017-01-24 09:34 | PROGRESS NOTE ---
DATE: 01/24/2017 SUBJECTIVE: She has no new complaints today. She is anticipating surgery this morning. No nausea or vomiting. No shortness of breath. OBJECTIVE: Vital Signs: Blood pressure 137/78, heart rate 83, respirations 17, afebrile. Intake 3.3 L. Output 3.1 L. Physical Examination: General: No acute distress. Skin: Warm and dry. HEENT: Conjunctivae are pink. Oropharynx is moist. Neck: Neck veins are not distended. Heart: Regular with an S4 and soft murmur. Lungs: Have equal breath sounds. No crackles or wheezes. Abdomen: Soft, mildly tender, distended. Bowel sounds are present. Extremities: Have 2+ edema. No clubbing or cyanosis. Laboratory Data: Sodium 142, potassium 2.7, chloride 102, bicarbonate 22, BUN 19, creatinine 1.1. IMPRESSION: 1. Acute kidney injury secondary to pancreatitis. Her labs have improved progressively and her urine output is excellent. Nothing to change today. 2. Electrolytes: Hypokalemia is present. We will treat with intravenous potassium chloride. 3. Acid-base. Still with modest anion gap acidosis. Improved overall. She is still receiving sodium acetate, receiving normal saline. No changes. cc: Amadou Griffin MD
[2017-01-24] MEDS: XANAX PO SCH ×2 (09:37→22:49)
[2017-01-24] MEDS: LANTUS SUBQ SCH ×2 (09:41→22:55)
[2017-01-24] MEDS ORDERED: POTASSIUM CHLORIDE 40 MEQ in NS 250 ML IV ONE (10:00)
[2017-01-24] MEDS: ATIVAN IV PRN (11:17)
[2017-01-24] MEDS ORDERED: NS 1,000 ML ONE (13:50)
[2017-01-24] MEDS ORDERED: VERSED ONE (13:58)
[2017-01-24] MEDS ORDERED: FENTANYL ONE (13:58)
[2017-01-24] MEDS ORDERED: LR 1,000 ML ONE (13:59)
[2017-01-24] MEDS ORDERED: SODIUM CHLORIDE 0.9% ONE (13:59)
[2017-01-24] MEDS ORDERED: SENSORCAINE-MPF 0.5%/EPI 1:200,000 ONE (13:59)
[2017-01-24] MEDS ORDERED: POTASSIUM CHLORIDE 60 MEQ in NS 500 ML IV ONE (15:06)
--- NOTE | 2017-01-24 16:07 | PROGRESS NOTE ---
DATE: 01/24/2017 SUBJECTIVE: The patient is resting comfortably in bed. She is scheduled for surgery today. OBJECTIVE: Vital Signs: Temperature 98.5 degrees, blood pressure 139/82, heart rate 87, respirations 20, O2 saturation is 95% on room air. General: This is an elderly female, lying in bed, in no acute distress. Head Normocephalic atraumatic. Heart: S1, S2. Normal. Regular rate and rhythm. Lungs: Clear to auscultation bilaterally. Abdomen: Positive bowel sounds. Soft, nontender, nondistended. Extremities: No edema. No cyanosis. Neurologic: The patient is alert and oriented x3. LABS: Sodium 142, potassium 3.2, chloride 103, CO2 22, BUN 19, creatinine 1.1. Glucose 95. Lipase 40. Hemoglobin 8.8, hematocrit 26, platelets 196,000. ASSESSMENT AND PLAN: 1. DKA. Resolved. 2. Insulin-dependent diabetes mellitus type 2. The patient is on Lantus b.i.d. 3. Acute kidney injury. Resolving. 4. Hypokalemia. Will replace the patient's potassium. 5. Hypophosphatemia. Will replace the patient's phosphorus. 6. Biliary pancreatitis. The patient is scheduled to undergo gallbladder removal today. 7. Ileus. Slowly improving. The patient appears to be having regular bowel movements. 8. Deep vein thrombosis prophylaxis. The patient is on Lovenox. cc: Jaymie Vazquez MD
--- NOTE | 2017-01-24 16:38 | OPERATIVE NOTE ---
PROCEDURE DATE: 01/24/2017 PREOPERATIVE DIAGNOSIS: Biliary pancreatitis. POSTOPERATIVE DIAGNOSES: 1. Biliary pancreatitis. 2. Acute cholecystitis. PROCEDURE PERFORMED: Laparoscopic cholecystectomy. SURGEON: Venu Colbert MD. PHYSICAL FITNESS TRAINER: None. ANESTHESIA: General endotracheal. INTRAOPERATIVE FINDINGS: Densely inflamed gallbladder, with a difficult anatomy down at the infundibulum. Very inflamed, with a large stone that was essentially blocking the cystic duct itself, causing the formation of white bile. It was densely inflamed, and there was some purulence to suggest almost developing a gangrenous cholecystitis. ESTIMATED BLOOD LOSS: 30 mL. SPECIMEN REMOVED: Gallbladder. BRIEF HISTORY: The patient is a 51-year-old female presenting with a new-onset diabetic ketoacidosis and biliary pancreatitis. The patient had improved clinically, and was felt to be resuscitated enough to undergo surgery. The risks, benefits, and alternatives were discussed. Risks including, but not limited to, bleeding, infection, risk of anesthesia, risk of injury to the common bile duct, and bile leak discussed. The patient voiced understanding and wished to proceed with the procedure. DESCRIPTION OF PROCEDURE: After informed consent was obtained, the patient was brought to the operative theatre, transferred to the operating table, placed in supine position. General endotracheal anesthesia was then performed without complication. A formal time-out was then performed, confirming patient, date, procedure. All were in agreement. At that time, attention was given to the abdomen. An infraumbilical incision was made, through which using Optiview technique, an 11 mm trocar was inserted and connected to insufflation. Pneumoperitoneum was achieved. Under direct visualization, we placed 3 more trocars, all 5 mm, 1 subxiphoid, 2 in the right upper quadrant. Using these, the gallbladder was identified and retracted cephalad. It was very densely inflamed and difficult to retract cephalad. We had dissected out a lot of omentum attached intimately to the gallbladder. It was very densely full, and I initially had to aspirate some of the fluid from the gallbladder, which was bile, consistent with inability for the gallbladder to empty. We elevated the gallbladder the best we could. At the base of the gallbladder, we dissected out multiple strictures. It was difficult to achieve the critical view of safety. I did isolate what looked like an anterior and posterior artery, clipped them. I also noted a cystic duct. I was only able to put 1 clip on it on the staying side, but it appeared to be a relatively decent clip, although again it was only 1 clip. 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 It had the posterior branch coming off of the right hepatic artery. We dissected this out, preserved the right hepatic artery, and clipped the posterior cystic artery. Given the difficult anatomy, I did have Dr. Muñoz come in to view the anatomy. He agreed with the findings. We dissected out the gallbladder from the gallbladder fossa using electrocautery. We placed it into an endobag and brought it out through the infraumbilical incision, which had to be considerably enlarged to accommodate at least a 3 cm size stone. We then turned our attention back to the gallbladder fossa. We irrigated it out copiously until the suction fluid was clear. There was no collection of bile that we noted. We went back and looked at the clips. They appeared to be in good position. They appeared to be holding in place. There was no active bleeding. The liver itself appeared to be okay. Given the difficulty with the placement of the clip on the cystic duct, and the inflammation, I elected to place a drain in the gallbladder fossa. We tunneled it from the most lateral trocar site, secured it in place in a standard fashion. We continued to irrigate the abdomen until the suction fluid was clear. We then removed all trocars, disconnected insufflation, and pneumoperitoneum was released. We then closed the fascial defect at the infraumbilical incision with interrupted 0 Vicryls with good results. We then irrigated out all incisions, closed them all with 4-0 Monocryl. The patient tolerated the procedure well, was transferred to the recovery room in stable condition. Postoperatively, we will monitor her drain for output. cc: Venu Colbert MD
--- NOTE | 2017-01-24 17:39 | PROGRESS NOTE ---
DATE: 01/24/2017 SUBJECTIVE: The patient is currently resting in bed. She complains of ongoing pain in the abdomen. She has been NPO today. She is scheduled for cholecystectomy today. She has had 1 liquid brown stool today. She denies any fever, rigors, or chills. OBJECTIVE: Vital signs: Temperature 97.2 degrees, pulse rate of 87, respiratory rate 20, blood pressure of 139/82, saturating 95% on room air. General appearance: Moderately built, moderately nourished, lying in bed, in no acute distress. HEENT: Mild pallor. No icterus. Neck: Supple. Abdomen: Distended, protuberant. Question of ileus. Bowel sounds are hypoactive. No rebound or guarding. Extremities: No cyanosis, clubbing, edema. Neurologic: She is alert, awake, oriented. LAB: Hemoglobin and hematocrit are 8.8 and 26.1, white count of 7.47, platelet count of 196,000. Sodium of 142, potassium 3.2, chloride 102, bicarb 20, anion of 18, BUN of 19, creatinine 1.1, glucose of 95, calcium 7.9, phosphorus is 1.6, magnesium 1.8, albumin 2.6. IMPRESSION AND PLAN: 1. Biliary pancreatitis which is resolved. 2. Gallstones and cholecystitis. She is going for laparoscopic cholecystectomy Dr. Colbert. 3. Diabetic ketoacidosis, resolved. 4. Insulin-dependent diabetes type 2. On Lantus t.i.d. 5. Acute kidney injury, resolving. 6. Ileus, slowly improving. She continues to have liquid bowel movements. We will follow up on her bowel function after the cholecystectomy. 7. The patient will follow up with me in the clinic in 4-6 weeks after discharge. The above plan was discussed with the patient and family. cc: MD Jaymie Saul MD Matthew L. Figh, MD MTDD
[2017-01-24] MEDS: LOVENOX SUBQ SCH (22:50)
[2017-01-25] MEDS: DILAUDID IV PRN ×7 (03:18→21:35)
[2017-01-25] MEDS: 1/2 NS 1,000 ML IV SCH ×2 (04:46→18:27)
[2017-01-25] MEDS: ZOSYN 2.25 GM in NS 50 ML IV SCH ×4 (04:46→21:24)
[2017-01-25 06:15] LABS: BASO% 0.3 % (0.0-0.8); HEMATOCRIT 28.1 % (37.0-47.0); HEMOGLOBIN 9.2 g/dL (12.0-16.0); IMM GRAN# 0.21 X1000 (0.0-0.04); IMM GRAN% 2.6 % (0.0-0.5); LYMPH# 1.13 X1000 (1.2-3.4); LYMPH% 14.2 % (20.5-51.1); MANUAL DIFF NEEDED? YES; MCH 29.1 PG (27-31); MCHC 32.7 g/dL (33-37); MCV 88.9 FL (81-99); MONO% 15.1 % (1.7-9.3); MPV 9.9 FL (7.4-10.4); NEUT% 67.8 % (42.2-75.2); PLT 237 X1000 (130-400); RBC 3.16 XMIL (4.2-5.4)
[2017-01-25] MEDS: PROTONIX IV SCH ×2 (06:22→18:28)
[2017-01-25 06:26] LABS: ALBUMIN 2.4 g/dL (3.5-5.0); CALCIUM 7.6 mg/dL (8.8-10.2); POTASSIUM 3.6 mmol/L (3.5-5.1)
[2017-01-25] MEDS ORDERED: MAGNESIUM SULFATE 2 GM/S.W.I. 2 GM/50 ML IVPB IV ONE (06:51)
[2017-01-25 06:58] LABS: BANDS 10 % (0-1); LYMPHS 20 % (21-51); MONO 12 % (1-9)
--- NOTE | 2017-01-25 07:15 | PROGRESS NOTE ---
DATE: 01/25/2017 SUBJECTIVE: Patient says she is feeling better. She does have what appears to be bile tinged fluid come out of her JOSE drain. OBJECTIVE: Vital Signs: Patient is currently afebrile. Her vital signs have been stable. General: No acute distress. Resting comfortably. Cardiovascular: Regular rate and rhythm. Lungs: Grossly clear. Abdomen: Soft, appropriately tender. JOSE drain in place with recorded output of 320 mL. It does have a slight bile tinge to it. LABORATORY: Reviewed. She does not have a bilirubin this morning but her lipase is normal. ASSESSMENT AND PLAN: A 52-year-old female, status post laparoscopic cholecystectomy and new onset diabetic ketoacidosis. 1. Postoperative state. At this time, her gallbladder was densely inflamed and it is difficult to get good clip across her cystic duct. I am concerned that she might have a leak in her cystic duct. This could also represent an accumulation of already drained bile. Given the fact that it could not do a cholangiogram during the procedure and that she has is bile tinged fluid coming out, we will ask Gastroenterology to do an endoscopic retrograde cholangiopancreatography today to evaluate and stent the area. This was discussed with the patient. Discussed with her and her my concerns. She is in agreement with proceeding with procedure. Again, at the same time, we can also see if she has any reason to have biliary pancreatitis since I could not do a cholangiogram. 2. Diabetic ketoacidosis. At this time, seems to be improving. We will follow up with her electrolytes, which seem to be better than they were yesterday. cc: Venu Colbert MD
[2017-01-25] MEDS: HUMULIN R SUBQ SCH ×4 (07:27→21:20)
[2017-01-25] MEDS ORDERED: POTASSIUM PHOSPHATE 30 MMOL in NS 250 ML IV ONE (08:00)
[2017-01-25] MEDS: LANTUS SUBQ SCH ×2 (08:31→21:18)
[2017-01-25] MEDS: XANAX PO SCH ×2 (08:34→21:11)
[2017-01-25] MEDS ORDERED: DIPRIVAN 1% 500 MG/50 ML BOTTLE ONE (13:30)
--- NOTE | 2017-01-25 14:11 | PROGRESS NOTE ---
DATE: 01/25/2017 SUBJECTIVE: The patient is resting comfortably in bed. She does have some postsurgical pain but otherwise has no other complaints. OBJECTIVE: Vital Signs: Temperature 98.5 degrees, blood pressure 112/73, heart rate 86, respirations 20, O2 saturations 93% on 2 L nasal cannula. General: This is an elderly female, lying in bed, in no acute distress. Head: Normocephalic. Atraumatic. Heart: S1, S2 normal. Regular rate and rhythm. Lungs: Clear to auscultation bilaterally. No wheezing. No rales. No rhonchi. Abdomen: Positive bowel sounds. Soft, nontender, nondistended. Extremities: No edema. No cyanosis. No calf tenderness. Neurologic: The patient is alert and oriented x3. LABORATORY DATA: White blood cell count 7.9, hemoglobin 9.2, hematocrit 28, platelets 237,000. Sodium 141, potassium 3.6, chloride 102. CO2 19, BUN 17, creatinine 1, glucose 141, albumin 2.4. ASSESSMENT AND PLAN: 1. Status post laparoscopic cholecystectomy. There is a possibility that the patient has a leak in her cystic duct. Dr. Colbert is consulted with GI for possible ERCP. We will continue to monitor the patient closely. 2. Diabetic ketoacidosis. Resolved. 3. Diabetes mellitus type 2. Continue on insulin. 4. Gastrointestinal prophylaxis. Continue on IV Protonix. cc: Jaymie Vazquez MD
[2017-01-25] MEDS ORDERED: FENTANYL ONE (14:31)
[2017-01-25] MEDS: SODIUM CHLORIDE 0.9% INJ SCH (18:28)
[2017-01-25] MEDS: LOVENOX SUBQ SCH (21:13)
[2017-01-26] MEDS: DILAUDID IV PRN ×8 (00:29→23:03)
[2017-01-26] MEDS: ATIVAN IV PRN (00:29)
[2017-01-26] MEDS: ZOSYN 2.25 GM in NS 50 ML IV SCH ×4 (03:55→21:02)
[2017-01-26] MEDS: PROTONIX IV SCH ×3 (06:09→18:41)
[2017-01-26] MEDS: SODIUM CHLORIDE 0.9% INJ SCH ×2 (06:09→16:18)
[2017-01-26] MEDS: HUMULIN R SUBQ SCH ×4 (06:13→20:24)
[2017-01-26 07:39] LABS: HEMOGLOBIN 8.6 g/dL (12.0-16.0); MCH 30.2 PG (27-31); MCHC 33.1 g/dL (33-37); MCV 91.2 FL (81-99); MPV 9.9 FL (7.4-10.4); RBC 2.85 XMIL (4.2-5.4)
[2017-01-26 08:21] LABS: ALBUMIN 2.2 g/dL (3.5-5.0); CALCIUM 7.8 mg/dL (8.8-10.2); MAGNESIUM 1.8 mg/dL (1.5-2.7); POTASSIUM 2.9 mmol/L (3.5-5.1)
[2017-01-26] MEDS: XANAX PO SCH ×2 (09:52→20:10)
[2017-01-26] MEDS: 1/2 NS 1,000 ML IV SCH (09:54)
[2017-01-26] MEDS: LANTUS SUBQ SCH ×2 (09:54→20:24)
[2017-01-26] MEDS ORDERED: KLOR-CON PO ONE (10:38)
--- NOTE | 2017-01-26 11:10 | PROGRESS NOTE ---
DATE: 01/26/2017 SUBJECTIVE: Feels okay. She is quite sore but not out of the realm of postoperative pain. OBJECTIVE: No fevers. No tachycardia. Blood pressure 157/86, oxygen saturation 96% on room air.General: She is alert, in no acute distress. HEENT: I see no scleral icterus or jaundice. Cardiovascular: Normal rate, regular rhythm. Abdomen: Soft, appropriately tender with no peritonitis. Incisions are clean, dry, intact. JOSE drain is delphine bile. Output overnight was 645 from her drain. LABS: Reviewed. White count 11, hematocrit 26, creatinine is 1.0, potassium is a little low at 2.9, bicarb 22. ASSESSMENT/PLAN: This is a 52-year-old female with gallstone pancreatitis, DKA, status post cholecystectomy with severe cholecystitis. Difficult case. She has a bile leak. She had attempts at ERCP that were unsuccessful due to ampullary edema. We will continue the drain for now. Antibiotics. She is on clear liquids. Will monitor her. LFTs are ordered for tomorrow and will plan for ERCP again once the edema from her pancreatitis resolved. I have talked to Dr. Colbert about this. He is in agreement. We will continue to monitor her. No need for surgical intervention. At this point, she does not have peritonitis and her drain seems to be controlling her leak well. I do think at some point, MRCP is going to be indicated to rule out some form of accessory duct or main bile duct injury. No signs of cholangitis. Will continue to follow along. cc: Siri Redman MD
[2017-01-26] MEDS: LR 1,000 ML IV SCH ×3 (12:07→21:03)
--- NOTE | 2017-01-26 14:21 | PROGRESS NOTE ---
DATE: 01/22/2017 SUBJECTIVE: The patient is resting comfortably, feeling much better. No nausea or vomiting. OBJECTIVE: Vital signs: Temperature 97.9, blood pressure 101/47, heart rate 72 , respirations 17, O2 saturation is 98% on 2 L. She is lying in bed, in no acute distress. HEENT : No scleral icterus. No conjunctival pallor. Neck is supple. Trachea in the midline. Heart: Normal first and second heart sounds. Lungs are clear. Abdomen: Positive bowel sounds. Mild epigastric tenderness. Extremities: No cyanosis or clubbing. Alert and oriented. DIAGNOSTIC DATA: White count is 8.2, hematocrit 29. Lipase 177. Albumin 2.3. IMPRESSION AND PLAN: 1. Diabetic ketoacidosis which is getting better. 2. Biliary pancreatitis. The lipase is improving daily. The patient will get gallbladder surgery. Dr. Colbert is consulted, and we are waiting for DKA to resolve. 3. Acute kidney injury which is improving with slow hydration. Her creatinine is down to 2. 4. Hypoxemia. She is on 2 L nasal cannula and pO2 at 60, which is being adjusted. 5. Metabolic acidosis which is improving. 6. Vitamin D deficiency. 7. Hypophosphatemia. 8. DVT prophylaxis. 9. GI prophylaxis. cc: Jen Abbott MD MTDD
--- NOTE | 2017-01-26 14:37 | OPERATIVE NOTE ---
PROCEDURE DATE : 01/25/2017 PROCEDURE PERFORMED: Endoscopic retrograde cholangiopancreatography. PREOPERATIVE DIAGNOSIS: Bile leak. POSTOPERATIVE DIAGNOSES: 1. Extensive edema and inflammation of duodenum. 2. Friability of duodenal wall. 3. Non visibility of the ampulla. DESCRIPTION OF PROCEDURE: After informed consent and adequate intravenous sedation by Anesthesia, the scope was introduced in the esophagus. The patient's C loop is inflamed from pancreatitis. The patient also had significant inflammation around her gallbladder in a difficult surgery. I proceeded with cannulating what appears to be a tiny speck of red spot which is in the location of the ampulla and after impaction of the cannula and injection of the dye, it would not go anywhere. At this point, we introduced a guidewire that went rather easily, and I followed this up with contrast which ended up into the drain that the patient had, so it appears it is through and through the duodenum. Because of the friability of the duodenum and possibility of further common duct injury, the procedure was stopped. Dr. Colbert was with me. The patient has very little, 200 mL, of biliary drainage, and the patient is not sick, so we decided to hold off and watch her over the weekend and decide whether to retry after the inflammation. If the patient continues to get better and the inflammation is subsided, we will follow her up on Saturday. cc: Jen Abbott MD
--- NOTE | 2017-01-26 15:14 | PROGRESS NOTE ---
DATE: 01/26/2017 SUBJECTIVE: The patient is resting comfortably in bed. She states that her abdominal pain is mild. She has a drain in place. OBJECTIVE: Vital Signs: Temperature 98.6 degrees, blood pressure 157/89, heart rate 72, respirations 18, O2 saturations 96% on room air. General: This is an elderly female, lying in bed, in no acute distress. Head: Normocephalic atraumatic. Heart: S1, S2. Normal. Regular rate and rhythm. Lungs: Clear to auscultation bilaterally. No wheezes, no rales. No rhonchi. Abdomen: Positive bowel sounds. Soft, nontender, nondistended. Extremities: No edema. No cyanosis. No calf tenderness. Neurologic: The patient is alert and oriented x3. LABS: White blood cell count 11, hemoglobin 8.6, hematocrit 26, platelets 216,000. Sodium 141, glucose 121, calcium 7.8, albumin 2.2, magnesium 1.8, phosphorus 2.7, creatinine 1. BUN 10. Sodium 141, potassium 2.9. ASSESSMENT AND PLAN: 1. Status post laparoscopic cholecystectomy with a bile leak. The patient had too much surrounding edema to complete the ERCP. Management as per GI and General Surgery. 2. Diabetic ketoacidosis. Resolved. 3. Diabetes mellitus type 2. Continue on Lantus plus sliding scale insulin. 4. Gastrointestinal prophylaxis. Continue on IV Protonix. 5. Deep vein thrombosis prophylaxis. Continue on Lovenox. 6. Vitamin D deficiency. Continue on vitamin D replacement. 7. Hypokalemia. Will replace the patient's potassium. cc: Jaymie Vazquez MD
[2017-01-26] MEDS: LOVENOX SUBQ SCH (20:11)
[2017-01-27] MEDS: ZOSYN 2.25 GM in NS 50 ML IV SCH (02:27)
[2017-01-27] MEDS: DILAUDID IV PRN ×7 (02:27→22:31)
[2017-01-27] MEDS: PROTONIX IV SCH ×2 (05:32→18:40)
[2017-01-27] MEDS: LR 1,000 ML IV SCH ×3 (05:32→22:25)
[2017-01-27] MEDS: SODIUM CHLORIDE 0.9% INJ SCH (05:32)
[2017-01-27] MEDS: HUMULIN R SUBQ SCH ×4 (06:03→22:36)
[2017-01-27 07:17] LABS: AGAP 12; ALBUMIN 2.4 g/dL (3.5-5.0); ALKALINE PHOSPHATASE 67 U/L (32-104); BUN 7 mg/dL (8-22); CHLORIDE 103 mmol/L (98-107); COSMO 276; GOT 43 U/L (10-30); GPT 31 U/L (10-36); SODIUM 139 mmol/L (136-145); TCO2 24 mmol/L (25-35); TOTAL BILIRUBIN 0.34 mg/dL (0.20-1.00); TOTAL PROTEIN 5.3 g/dL (6.3-8.3)
[2017-01-27 07:26] LABS: HEMATOCRIT 25.7 % (37.0-47.0); HEMOGLOBIN 8.7 g/dL (12.0-16.0); MCH 30.7 PG (27-31); MCHC 33.9 g/dL (33-37); MCV 90.8 FL (81-99); MPV 9.7 FL (7.4-10.4); RBC 2.83 XMIL (4.2-5.4)
[2017-01-27] MEDS ORDERED: POTASSIUM CHLORIDE 60 MEQ in NS 500 ML IV ONE ×2 (07:53→20:00)
[2017-01-27] MEDS ORDERED: MAGNESIUM SULFATE 2 GM/S.W.I. 2 GM/50 ML IVPB IV ONE (07:53)
[2017-01-27] MEDS: LANTUS SUBQ SCH ×2 (08:48→22:36)
[2017-01-27] MEDS: XANAX PO SCH ×2 (08:49→22:31)
[2017-01-27] MEDS: ZOSYN 3.375 GM in NS 50 ML IV SCH ×3 (12:20→22:26)
--- NOTE | 2017-01-27 14:02 | PROGRESS NOTE ---
DATE: 01/27/2017 SUBJECTIVE: She feels better today, pain improved, she is ambulating, she is having bowel function. OBJECTIVE: Vital signs: No fevers. Pulse 63, blood pressure 157/90, oxygen saturation 98% on room air. General: She is alert, no acute distress. HEENT: There is no jaundice or scleral icterus. Abdomen: Soft, appropriately tender. Incisions are clean, dry, intact. JOSE drains delphine bile with reported 225 out overnight. LABS: Reviewed her labs. White count is mildly elevated at 12, hematocrit 25, bilirubin is normal at 0.34, AST, ALT 43, 31, alkaline phosphatase is 67. ASSESSMENT/PLAN: A 52-year-old female with bile leak after laparoscopic cholecystectomy who is admitted with gallstone pancreatitis. Clinically she is doing okay. She does not have peritonitis and her drain seems to be controlling her leak. Will wait until early this week to perform ERCP again as the previous was unsuccessful given periampullary edema. Given the normal LFTs and her clinical picture will hold off on ERCP for now. She may ultimately need this but if we can get ERCP this will give us the same information and will be therapeutic as well. Will continue follow along. cc: Siri Redman MD
[2017-01-27 18:08] LABS: MAGNESIUM 1.8 mg/dL (1.5-2.7); POTASSIUM 3.3 mmol/L (3.5-5.1)
--- NOTE | 2017-01-27 19:47 | PROGRESS NOTE ---
DATE: 01/27/2017 SUBJECTIVE: The patient is resting comfortably in bed. She has no complaints at this time. OBJECTIVE: Vital Signs: Temperature 98 degrees, blood pressure 149/80, heart rate 77, respirations 16, O2 saturations 98% on room air. General: This is a middle- aged female, lying in bed, in no acute distress. HEENT: Head normocephalic, atraumatic. Heart: S1 , S2. Normal. Regular rate and rhythm. Lungs: Equal air entry bilaterally. No crackles, no rales. Abdomen: Positive bowel sounds. Soft, nontender, nondistended. Extremities: No edema. No cyanosis. No calf tenderness. Neurologic: The patient is alert and oriented x3. LABORATORIES: White blood cell count 12, hemoglobin 8.7, hematocrit 25, platelets 206,000. Sodium 139, potassium 3, chloride 103, CO2 24, BUN 7, creatinine 0.9, glucose 122, magnesium 1.6. ASSESSMENT AND PLAN: 1. Bile leak status post laparoscopic cholecystectomy. Management as per the general surgeon and student affairs vice president. 2. Diabetes mellitus type 2. Continue on Lantus plus sliding-scale insulin. 3. Hypokalemia. We will replace the patient's potassium. 4. Hypomagnesemia. We will replace the patient's magnesium. 5. Gastrointestinal prophylaxis. Continue on IV Protonix. 6. Vitamin D deficiency. Continue on vitamin D replacement. 7. Diabetic ketoacidosis, resolved. 8. Deep vein thrombosis prophylaxis. Continue on Lovenox. cc: Jaymie Vazquez MD MTDD
[2017-01-27] MEDS: LOVENOX SUBQ SCH (22:31)
[2017-01-28] MEDS: DILAUDID IV PRN ×5 (01:59→14:41)
[2017-01-28] MEDS: ZOSYN 3.375 GM in NS 50 ML IV SCH ×2 (05:34→11:49)
[2017-01-28] MEDS: HUMULIN R SUBQ SCH ×3 (06:08→16:10)
[2017-01-28] MEDS: SODIUM CHLORIDE 0.9% INJ SCH (06:16)
[2017-01-28] MEDS: PROTONIX IV SCH (06:16)
[2017-01-28 06:26] LABS: MANUAL DIFF NEEDED? NO
[2017-01-28 06:39] LABS: BASO% 0.1 % (0.0-0.8); HEMATOCRIT 26.4 % (37.0-47.0); HEMOGLOBIN 8.8 g/dL (12.0-16.0); IMM GRAN# 0.14 X1000 (0.0-0.04); LYMPH# 0.95 X1000 (1.2-3.4); LYMPH% 6.9 % (20.5-51.1); MCH 29.3 PG (27-31); MCHC 33.3 g/dL (33-37); MONO# 1.04 X1000 (0.11-0.59); MONO% 7.6 % (1.7-9.3); MPV 9.9 FL (7.4-10.4); NEUT% 84.4 % (42.2-75.2); PLT 237 X1000 (130-400)
[2017-01-28 07:03] LABS: ALBUMIN 2.6 g/dL (3.5-5.0); POTASSIUM 3.4 mmol/L (3.5-5.1); TOTAL BILIRUBIN 0.31 mg/dL (0.20-1.00)
--- NOTE | 2017-01-28 07:26 | PROGRESS NOTE ---
DATE: 01/28/2017 SUBJECTIVE: Patient doing okay. She is tolerating her clear liquids, having bowel movements. No real significant abdominal pain. JOSE drain has decreased to only 90 out the last 24 hours. OBJECTIVE: Vital Signs: Patient is currently afebrile. Her vital signs are stable. General: No acute distress. Cardiovascular: Regular rate and rhythm. Lungs: Grossly clear. Abdomen: Soft, appropriately tender. Incisions look okay. JOSE drain in place with bile with only 90 reported out. LABS: Reviewed. Her white count is slightly elevated at 13. Hematocrit stable at 26. ASSESSMENT/PLAN: A 52-year-old female with a bile leak after laparoscopic cholecystectomy for biliary pancreatitis. Postoperative state at this time, clinically she is doing well. The Graham-Limon drain is doing exactly what we wanted it to do. Her JOSE drain output is decreasing, although I clinically do suspect she still has a bile leak. Dr. Abbott tried to do an ERCP on Saturday but it was too edematous at that time to be successful. At this time, would prefer to have her repeat an ERCP, but if you do not want to wait several days, we may even consider discharging her home with followup outpatient ERCP. I think from a surgical point of view there is no reason she cannot have a low-fat diet, so I will advance her to that. Clinically she is on antibiotics with her leukocytosis but we will continue to monitor it closely. I do suspect that if an ERCP is not planned in the near future we could discharge her. cc: Venu Colbert MD
[2017-01-28] MEDS: XANAX PO SCH (08:29)
[2017-01-28] MEDS: LANTUS SUBQ SCH (08:29)
--- NOTE | 2017-01-28 10:15 | PROGRESS NOTE ---
DATE: 01/28/2017 SUBJECTIVE: Patient resting in bed. She is doing better. She denies any fevers, rigors, chills. She denies any nausea. She complains of mild abdominal pressure because of recent surgery. She has been passing some flatus. She had 1 bowel movement listed yesterday. OBJECTIVE: Vital Signs: Temperature 98.3, pulse rate 74, respiratory rate 18, blood pressure 162/82, saturating 98% on room air. General Appearance: Moderately nourished, lying in bed, in no obvious distress. HEENT: Mild pallor. No icterus. Neck: Supple. Abdomen : Soft, appropriately tender. JOSE drain in place in the right upper quadrant, draining bile. No guarding. Extremities: No cyanosis, clubbing. Neurologic: She is alert, awake, oriented. LABORATORY DATA: Her hematocrit is 26, and white count of 13.68, platelet count of 237,000. Sodium 139, potassium 3.4, chloride 104, bicarb 29, BUN of 5, creatinine 1, glucose of 99, calcium is 8. Phosphorus 2.5, magnesium 1.6. Total bilirubin is 0.31, AST 38, ALT 33, alkaline phosphatase 93, total protein 5.0, albumin of 2.6. IMPRESSION AND PLAN: 1. Bile leak, status post cholecystectomy. In this regard, her bile drainage is slowing down. She most likely will go home with a drain, and we will schedule her an appointment with Dr. Abbott in 1 week. If the patient does need repeat endoscopic retrograde cholangiopancreatography, that will be addressed at that time. In the interim, she will continue on Protonix twice daily to help reduce the inflammation in the periampullary and duodenal area. 2. Biliary pancreatitis has now resolved. She was encouraged to be on a low- fat diet and avoid any kind of pancreatotoxic drugs. No alcohol. 3. Diabetes mellitus, new diagnosis diabetic ketoacidosis. She will need to follow up closely with a primary care doctor. 4. Gastrointestinal prophylaxis with PPI. 5. Chronic pain. Patient instructed to reduce her dose of narcotics as low as possible to help improve the bowel function and reduce the ileus. 6. Constipation. Will give her a dose of Dulcolax once at bedtime. Above plan discussed with the patient and also with Dr. Colbert. cc: Juan Love MD MTDD
[2017-01-28] MEDS: LR 1,000 ML IV SCH (11:48)
[2017-01-28 15:11] VITALS: BP 159/98
[2017-01-28] MEDS ORDERED: NEUTRA-PHOS PO ONE (15:13)
[2017-01-28] MEDS ORDERED: KLOR-CON PO ONE (15:15)
[2017-01-28] MEDS ORDERED: ICAR-C PO SCH (21:00)
[2017-01-28] MEDS ORDERED: DULCOLAX PR SCH (21:00)
[2017-01-29] MEDS ORDERED: CENTRUM SILVER PO SCH (09:00)
--- NOTE | 2017-01-29 12:34 | DISCHARGE SUMMARY ---
ADMISSION DATE: 01/19/2017 DISCHARGE DATE: 01/28/2017 CONSULTATION: 1. Dr. Venu Colbert with General Surgery. 2. Dr. Juan Love with Gastroenterology. PERTINENT PROCEDURES: 1. Abdominal ultrasound showed prominent stones and echogenic sludge in the gallbladder lumen with reported positive sonographic Nicole sign, suggestion of hepatic steatosis, pancreas is largely obscured. No pericholecystic fluid collection could be identified sonographically. 2. Abdomen MRI showed pancreatitis and cholelithiasis. 3. Laparoscopic cholecystectomy performed by Dr. Venu Colbert. 4. Endoscopic retrograde cholangiopancreatography secondary to bile leak performed by Dr. Abbott. DISCHARGE DIAGNOSES: 1. Bile leak, status post cholecystectomy, status post endoscopic retrograde cholangiopancreatography. Patient will go home with a drain. Schedule an appointment with Dr. Abbott in 1 week. The patient needs a repeat endoscopic retrograde cholangiopancreatography, and that will be addressed at that time. In the meantime, she will continue on a proton pump inhibitor twice daily to reduce inflammation in the periampullary and duodenal area. Biliary pancreatitis. Patient is encouraged to be on a low-fat diet and to avoid any pancreatic or toxic drugs. 2. Diabetes mellitus. Continue with Lantus. 3. Hypokalemia, resolved. 4. Hypomagnesemia, resolved. 5. Vitamin D deficiency. Continue supplementation. 6. Diabetic ketoacidosis, resolved. 7. Acute kidney injury secondary to diabetic ketoacidosis, resolved. HOSPITAL COURSE: Briefly, Ms. Granados is a 52-year-old female, who carries no past medical history, reported to [facility] with complaints of abdominal pain that began 2 hours prior to her arrival. She thought she was constipated. Workup in the ED revealed a WBC of 13 and sodium 119, chloride of 78, blood glucose of 1060, and a lipase/amylase of 471 and a lipase of 1959. Acetone level was moderate. No previous history of diabetes. Patient does have diabetes in her family she was admitted to the ICU for new onset of diabetes with DKA and acute pancreatitis. She was initiated on the DKA protocol as well as IV and antiemetic medications. I will follow her labs closely. Discussed the case with General Surgery. Abdominal MRI showed pancreatitis and cholelithiasis. She was also noted to be in acute renal failure with a decreased urine output with abdominal distention. We put in a transfer to [facility] with a consult for Nephrology. She was also seen by General Surgery at that time. They are going to let her pancreatitis cool off before they do any type of surgical intervention as well as let her DKA resolve. She was started on Protonix IV q.12 hours. GI made her n.p.o. and, when she started passing gas and her appetite returns, they would start her back on a diet. Her BUN and creatinine continue to improve with IV fluid resuscitation. Her renal ultrasound was negative for any acute disease. Nephrology had a D5 W with 3 ampules of sodium acetate to infuse given her metabolic anion gap acidosis. The patient remained in DKA for several days. Her iron gap was slow to close. Her DKA did resolve and on 01/24/2017, she was able to undergo a laparoscopic cholecystectomy by Dr. Colbert. Dr. Colbert was concerned that she may have a leak in her cystic duct. Her gallbladder was densely inflamed and difficult to get a good clip across her cystic duct. He talked to GI about doing an ERCP to evaluate the area for stenting. On 01/26/2017, the patient did undergo an ERCP for bile leak. However, in his notes he does say because of the friability of the duodenum and possibility of further common duct injuries, the procedure was stopped. Dr. Colbert was with Dr. Abbott, and the patient had 200 mL of biliary drainage. The patient was not sick, so they decided to hold off and watch over the weekend and decide whether to retry after the inflammation had gone down and if she continues to get better and the inflammation has subsided for she may ultimately need this as an outpatient. She has a scheduled appointment for Dr. Abbott in 1 week. She will continue on PPI twice daily to help reduce the inflammation in the periampullary and duodenal area. Encouraged to be on a low-fat diet and avoid any pancreatic or toxic drugs. For her new diabetes, follow closely with her primary care doctor and take all medications as prescribed. Since she has been instructed to reduce her dose of narcotics as well as possible to help improve bowel function to reduce her ileus that was seen on x-ray on 01/22/2017. The patient has been tolerating a clear liquid diet. She has had several bowel movements and was changed to a low-fat diet today. She is to return home at discharge. VITAL SIGNS: Temperature is 98.2 degrees, heart rate 71, respirations 18, blood pressure 159/98, O2 is 99% on room air. DISCHARGE DIET: Low fat. DISCHARGE MEDICATIONS: As per Dr. Dickey 1. Xanax 1 tablet p.o. b.i.d. 2. Augmentin 875 mg p.o. q.12 hours. 3. Colace 200 mg p.o. at bedtime. 4. Vitamin D 50,000 units p.o. q 7 days. 5. Wilmer 10 one each p.o. q.4 hours p.r.n. 6. Lantus 25 units subcutaneous q.a.m. 7. Lantus 10 units subcutaneous at bedtime. 8. Icar-C one each p.o. b.i.d. 9. Lisinopril 20 mg p.o. daily. FOLLOWUP: Ms. Granados is being discharged home. She will need to follow up with her primary care physician, Dr. Suraj Lowe. Follow up with Dr. Abbott in 1 week. Take all medications as prescribed. She can return to the ED for any worsening of symptoms. Dictated by LAURA Castro for Mark Roth MD cc: MD Suraj Miner MD
== END 2017-01-28 17:01 | disposition home or self-care (01) ==
LOC: P.ED 03:31 → SUATTDRO 03:32 → P.ICU 03:32 → P.ED 04:40 → ICU 01-20 17:31 → 3N 01-24 02:33
PROVIDERS: ATTEND Internal Medicine
PROC: EN.ERCP (2017-01-25 13:44)